=== PATIENT | male | born 1955 | race Caucasian/White ===

== ENCOUNTER → 2023-07-23 13:41 | Outpatient (REF) | payer MEDICARE, BC, SELFPAY | LOC: HWRAD 13:41 | PROVIDERS: ATTENDING PHYSICIAN Nurse Practitioner Adult Health; FAMILY PHYSICIAN Family Medicine | DX: R10.30 Lower abdominal pain, unspecified (principal) | CPT/HCPCS: 76870; 93976 ==

== ENCOUNTER → 2023-12-26 11:17 | Outpatient (REF) | payer MEDICARE, BC, SELFPAY | LOC: HWRCS 11:17 | PROVIDERS: ATTENDING PHYSICIAN Internal Medicine; FAMILY PHYSICIAN Family Medicine | DX: R06.02 Shortness of breath (principal) | CPT/HCPCS: 93306 ==

== ENCOUNTER 2024-01-22 14:44 | Outpatient (RCR) | payer MEDICARE, BC, SELFPAY ==
[2024-01-22] MEDS: INJECTAFER 265 MG IV (15:05)
[2024-01-22 15:07] VITALS: BP 158/86
[2024-01-22 15:51] VITALS: BP 167/98
[2024-01-22 15:59] VITALS: BP 168/95
== END 2024-02-04 23:59 | disposition home or self-care (01) ==
LOC: OID 14:44
PROVIDERS: ATTENDING PHYSICIAN Specialist; FAMILY PHYSICIAN Family Medicine
DX: D50.9 Iron deficiency anemia, unspecified (principal); D63.1 Anemia in chronic kidney disease; N18.32 Chronic kidney disease, stage 3b; I80.9 Phlebitis and thrombophlebitis of unspecified site; D69.2 Other nonthrombocytopenic purpura; R80.9 Proteinuria, unspecified
CPT/HCPCS: 96365; J1439

== ENCOUNTER → 2024-02-18 06:35 | Day surgery (SDC) | payer MEDICARE, BC, SELFPAY | LOC: GI 06:35 | PROVIDERS: ATTENDING PHYSICIAN Student in an Organized Health Care Education/Training Program | DX: Z12.11 Encounter for screening for malignant neoplasm of colon (principal); Z86.0101 Personal history of adenomatous and serrated colon polyps; D50.9 Iron deficiency anemia, unspecified; K64.4 Residual hemorrhoidal skin tags; K57.30 Diverticulosis of large intestine without perforation or abscess without bleeding; D12.0 Benign neoplasm of cecum; D12.2 Benign neoplasm of ascending colon; D12.3 Benign neoplasm of transverse colon; K64.9 Unspecified hemorrhoids; K31.7 Polyp of stomach and duodenum; K31.89 Other diseases of stomach and duodenum | CPT/HCPCS: 43251; 45385; 88305; 88342 ==

== ENCOUNTER → 2024-03-26 11:27 | Outpatient (REF) | payer MEDICARE, BC, SELFPAY ==
[2024-03-26 11:45] LABS: % Basophils 0.1 % (0-2); % Immature Granulocytes 2.6 % (0-0.5); % Lymphocytes 2.1 % (20.5-51.1); % Neutrophils 89.2 % (42.2-75.2); Absolute Immature Granulocytes 0.4 10^3/uL (0-0.05); Absolute Lymphocytes 0.3 10^3/uL (1.2-3.4); Absolute Monocytes 0.9 10^3/uL (0.1-0.6); Absolute Neutrophils 12.8 10^3/uL (1.4-6.5); Hematocrit 26.7 % (39.0-52.0); Mean Corp Hgb Conc. 33.7 g/dL (33.0-37.0); Mean Corpuscular Hgb 29.6 pg (27.0-31.0); Mean Corpuscular Volume 87.8 fL (80.0-94.0); Mean Platelet Volume 10.8 fL (7.4-10.4); Platelet Count 230 10^3/uL (130-400); Red Blood Cell Count 3.04 10^6/uL (4.70-6.10); Red Cell Dist. Width 16.7 % (11.5-14.5); White Blood Cell Count 14.4 10^3/uL (4.8-10.8)
[2024-03-26 14:10] LABS: Iron 142 ug/dl (49-181)
[2024-03-26 14:18] LABS: Blood Urea Nitrogen 157 mg/dl (9-20); Percent Saturation 58 % (20-50); Total Iron Binding Capacity 244 ug/dl (261-462)
== END ==
LOC: OIDL 11:27
PROVIDERS: ATTENDING PHYSICIAN Internal Medicine Hematology & Oncology; FAMILY PHYSICIAN Internal Medicine
DX: D63.1 Anemia in chronic kidney disease (principal); N18.4 Chronic kidney disease, stage 4 (severe); E56.9 Vitamin deficiency, unspecified; R53.83 Other fatigue; D50.8 Other iron deficiency anemias
CPT/HCPCS: 36415; 82565; 82728; 83540; 83550; 84520; 85025

== ENCOUNTER 2024-03-27 23:59 | Inpatient (IN) | payer MEDICARE, BC, SELFPAY ==
[2024-03-27 21:11] VITALS: BP 172/101
--- NOTE | 2024-03-27 21:43 | ED.GENMED ---
History of Present Illness
General
Chief Complaint: Abdominal Symptoms
Source: patient
Exam Limitations: none
Time Seen by Provider: 03/27/24 21:30
Nursing documentation reviewed up to this point in time: agreed with
History of Present Illness
History of Present Illness:
Patient to ED with complaint of diffuse abdominal pain, abdominal bloating, increased BLE edema, 25lb weight gain in 2 weeks. Timbo developed chills. Brought to ED by daughter for eval
Past History
Past History
ED Past Medical History: Arrthythmia, HTN, Hypercholesterolemia and Other (BPH )
ED Past Surgical History: Appendectomy, Orthopedic (Partial right knee replacement) and Other (Hernia repair)
Social History
Tobacco: Non-smoker
Alcohol: Occasional
Drug: None
Personal:
Living: with family
Employment: Employed
Review of Systems
Review of Systems
Allergies reviewed?: Yes
All Other Systems: ROS reviewed and negative except as documented in HPI and ROS
Constitutional: Reports chills
EENT: Reports no symptoms
Respiratory: Reports no symptoms
ABD/GI: Reports abdominal pain
: Reports no symptoms
Musculoskeletal: Reports edema (+3 edema BLE)
Skin: Reports no symptoms
Neurological: Reports no symptoms
Psychiatric: Reports no symptoms
Phy Exam
General Physical Exam
General Presentation: mild distress
General age: appears stated age
General Skin: warm and dry
General Habitus: normal
General Mental: alert
Cardiovascular Exam
Cardiovascular Exam: regular rate/rhythm
Pulmonary Exam
Pulmonary Exam: lungs clear and no respiratory distress
Gastrointestinal Exam
Gastrointestinal Exam: normal bowel sounds, soft and no organomegaly
Palpation: generalized: Mild tenderness
Musculoskeletal Exam
Musculoskeletal Exam: full ROM and neuro vasc intact
Skin Exam
Skin Exam: normal color, warm/dry and no rash
Psychiatric Exam
Psychiatric Exam: normal mood/affect
Course
Orders/Labs/Results
Orders:
Orders
03/27/24 21:42
Abdomen/Pelvis wo Contrast CT [CT Abd/pelvis Wo Iv Cont] Urgent
Comment:
Reason For Exam: diffuse pain
03/27/24 22:19
BNP [NT-proBNP] Urgent
03/27/24 22:20
CMP [Comprehensive Metabolic Panel] Urgent
Complete Blood Count/With Diff Urgent
Magnesium Urgent
Comment: ADDED
Phosphorus Urgent
Comment: ADDED
Urinalysis Reflex To Culture Urgent
Date Specimen was Collected: 03/27/24
Time Specimen was Collected: 21:45
Urine Microscopic Reflex Cult Urgent
Urine Culture Urgent
ANKIT Source: U
Specimen Description:
Date Specimen was Collected: 03/27/24
Time Specimen was Collected: 21:45
03/27/24 22:55
Cefepime HCl [Maxipime] 2,000 mg IV NOW STA
03/27/24 22:58
Sodium Zirconium Cyclosilicate [Lokelma] 10 gram PO NOW STA
03/27/24 23:00
Flush (0.9% Sodium Chloride) [Flush (Nss)] See Dose Instructions IV PER PROTOCOL
03/27/24 23:06
Calcium Gluconate 2 gram/100mL [Calcium Gluconate] 2 gram in 100 ml IV ONCE
03/27/24 23:07
EKG [Electrocardiogram (*1)] Urgent
Reason for Study: Palpitations
Sterile Water [Sterile Water For Injection] 20 ml .ROUTE .STK-MED
03/27/24 23:13
Dextrose 50%-Water [Dextrose 50% Syringe] 12.5 grams IV [id number] PRN
Dextrose 50%-Water [Dextrose 50% Syringe] 25 grams IV NOW STA
Insulin Human Regular [Novolin R] 5 units IV NOW STA
Sodium Bicarbonate 50 meq IV NOW STA
Bedside Glucose PRE IV Insulin- HyperK+ NOW
03/27/24 23:[address] Non Medication Order As Directed
Physician Order: please contact overnight provider with 2AM potassium results
Above order entered?: Yes
03/27/24 23:34
Add On- LAB Routine
Tests Added?: magnesium, phosphorous
03/27/24 23:45
Admit/Transfer Patient As Directed
Co-Sign Provider:
Level of Care: Inpatient admission
Assign to:: IMU- Intermediate Care
Physician / Group: Delma Lopez
Diagnosis: acute renal failure, hyperkalemia
Reason for Hospitalization: acute renal failure, hyperkalemia
Expected length of stay greater than two midnights?: Yes
ELOS- Estimated Length of Stay in days: 5
I certify the patient meets the requirements for IP care: Yes
PRN Pain Medication Management As Directed
May give lesser potent ordered pain med per pt: Yes
preference::
Protocol:: Medication orders for pain may be administered in a
manner that supports deferring to patient preference
when the pt is:
- Requesting an ordered lesser potent pain medication.
Least to most potent pain medications are defined
as: acetaminophen < NSAID < tramadol < opioids
(morphine, oxycodone, hydromorphone).
- Requesting a lesser dose of the same medication IF
ORDERED.
- Requesting a less intrusive route of administration
if both routes are prescribed by the provider (PO <
IV).
03/27/24 23:49
Code Status As Directed
Resuscitation Status: Full Code
03/27/24 23:55
Insulin Human Regular [Novolin R] 10 units IV NOW STA
03/28/24 00:43
Bedside Glucose POST IV Insulin- HyperK+ Q1HX2,Q2HX2
03/28/24 01:50
Acetaminophen [Tylenol] 650 mg PO Q4HPRN PRN
Bisacodyl [Dulcolax] 10 mg RECTAL [id number] PRN
Docusate W/Senna [Senokot-S] 1 tablet PO BIDPRN PRN
Polyethylene Glycol Powder [Miralax] 17 grams PO DAILYPRN PRN
03/28/24 01:50
NEPHROLOGY CONSULT Routine
Consulting Provider: Doug Price
Was physician already notified: Yes
Activity As Directed
Activity Level: As Tolerated
Intake/ Output As Directed
Frequency: Per unit guidelines
Pneumatic Compression Sleeves As Directed
Type: Knee high
Vital Signs As Directed
Frequency: Per unit guidelines
Weight As Directed
Frequency: Daily
DX Deep Vein Thrombosis Video Routine
03/28/24 02:24
Potassium Urgent
Comment: draw 2 hours after regular insulin IV administration
Troponin I Routine
03/28/24 05:47
Basic Metabolic Panel IN AM
Complete Blood Count/No Diff IN AM
Magnesium IN AM
Troponin I IN AM
03/28/24 Breakfast
NPO
Allow oral meds: Yes
Allow clear liquids: No
Sodium Zirconium Cyclosilicate [Lokelma] 10 gram PO TID@0600,1400,1800
03/28/24 08:00
Diltiazem Extended Release [Cardizem Cd] 180 mg PO DAILY
Labetalol [Trandate] 400 mg PO BID
Pantoprazole [Protonix] 40 mg PO DAILY
Prednisone [Deltasone] 30 mg PO DAILY
03/28/24 22:00
Finasteride [Proscar] 5 mg PO HS
Abnormal Lab Results
03/27/24
22:20
WBC 13.1 H 10^3/uL
(4.8-10.8)
RBC 3.08 L 10^6/uL
(4.70-6.10)
Hgb 9.0 L g/dL
(13.0-18.0)
Hct 27.7 L %
(39.0-52.0)
MCHC 32.5 L g/dL
(33.0-37.0)
RDW 17.4 H %
(11.5-14.5)
MPV 11.1 H fL
(7.4-10.4)
Abs Immat Gran (auto) 0.7 H 10^3/uL
(0-0.05)
Absolute Neuts (auto) 11.5 H 10^3/uL
(1.4-6.5)
Absolute Lymphs (auto) 0.2 L 10^3/uL
(1.2-3.4)
Immature Gran % 5.5 H %
(0-0.5)
Neutrophils % 88.1 H %
(42.2-75.2)
Lymphocytes % 1.8 L %
(20.5-51.1)
Potassium 6.5 H* mmol/L
(3.5-5.1)
Chloride 108 H mmol/L
(98-107)
Carbon Dioxide 19 L mmol/L
(22-30)
BUN 161 H* mg/dl
(9-20)
Creatinine 6.4 H* mg/dL
(0.7-1.3)
Glucose 119 H mg/dl
(70-99)
Calcium 8.3 L mg/dl
(8.4-10.2)
Phosphorus 5.5 H mg/dl
(2.5-4.5)
Magnesium 2.8 H mg/dl
(1.6-2.3)
ALT 55 H U/L
(0-50)
Alkaline Phosphatase 30 L U/L
(38-126)
Total Protein 5.0 L g/dl
(6.3-8.2)
Albumin 2.7 L g/dl
(3.5-5.0)
Ur Occult Blood Reflex 3+ A
(Negative)
Leukocyte Esterase Rfl 2+ A
(Negative)
Urine RBC 11-15 A /HPF
(0-2)
Urine WBC (Reflex) 21-25 A /HPF
(0-5)
Urine Bacteria (Reflex) Moderate A
(Negative)
Urine Glucose 2+ A
(Negative)
Urine Albumin (Reflex) 3+ A
(Neg - Trace)
03/27/24 22:20
03/27/24 22:20
Vital Signs
Initial and Last Documented VS:
Initial Vital Signs
Temp Pulse Resp BP Pulse Ox
97.6 F 81 17 172/101 98
03/27/24 21:11 03/27/24 21:11 03/27/24 21:11 03/27/24 21:11 03/27/24 21:11
Last Documented Vital Signs
Temp Pulse Resp BP Pulse Ox
98.3 F 89 18 159/88 95
03/29/24 19:00 03/29/24 20:06 03/29/24 19:00 03/29/24 20:06 03/29/24 19:00
*Radiology
Radiology exam reviewed: radiology read reviewed
*Pulse Oximetry
Patient hypoxic: no
*Critical Care Note
Total Time (30-74mins, 75-104mins- exclusive of procedures): Not Applicable
ED Attending Note
-
Portions of this chart may have been created with voice recognition software.� Occasional wrong word or��sound alike� substitutions may have occurred due to the inherent limitations of voice recognition software.
Discharge Plan
Departure
Patient Disposition: Admit
Date of Disposition: 03/27/24
Time of Disposition: 22:58
Presentation/result/management discussed w/ accepting MD/DO: Hospitalist
Patient with high blood pressure during this ER visit?: Yes
Condition: Fair
Covid-19: Not Applicable
Discharge Problem:
Acute renal failure (ARF), Acute UTI, Acute hyperkalemia
Interventions
Interventions:
*Risk Screen - Suicide Last Done: 03/27/24 21:11
*General Assessment Last Done: 03/27/24 22:27
*Neglect/Abuse Screening Last Done: 03/27/24 21:11
ED- Fall Risk Assessment Last Done: 03/28/24 00:35
*ED COVID-19 Vaccine History Last Done: 03/27/24 22:27
*Nursing Disposition Last Done: 03/28/24 01:57
IQ-Dxveru-Cpwaldlmzg Assessment Last Done: 03/27/24 22:27
Discharge Date and Time
Discharge Date/Time: 03/28/24 01:58
[2024-03-27 22:26] VITALS: BP 170/94
[2024-03-27 22:27] VITALS: BP 170/94; BMI 37.4
[2024-03-27 22:34] LABS: Hematocrit 27.7 % (39.0-52.0); Mean Corp Hgb Conc. 32.5 g/dL (33.0-37.0); Mean Corpuscular Hgb 29.2 pg (27.0-31.0); Mean Corpuscular Volume 89.9 fL (80.0-94.0); Mean Platelet Volume 11.1 fL (7.4-10.4); Platelet Count 203 10^3/uL (130-400); Red Blood Cell Count 3.08 10^6/uL (4.70-6.10); Red Cell Dist. Width 17.4 % (11.5-14.5); White Blood Cell Count 13.1 10^3/uL (4.8-10.8)
[2024-03-27 22:39] LABS: Urine Albumin 3+ (Neg - Trace); Urine Bilirubin Negative (Negative); Urine Character Clear (Clear); Urine Color Yellow; Urine Glucose 2+ (Negative); Urine Ketone Negative (Negative); Urine Leukocyte 2+ (Negative); Urine Nitrite Negative (Negative); Urine Occult Blood 3+ (Negative); Urine Urobilinogen Negative (Neg - 1+)
[2024-03-27 22:46] LABS: % Basophils 0.1 % (0-2); % Immature Granulocytes 5.5 % (0-0.5); % Lymphocytes 1.8 % (20.5-51.1); % Monocytes 4.5 % (1.7-9.3); % Neutrophils 88.1 % (42.2-75.2); Absolute Immature Granulocytes 0.7 10^3/uL (0-0.05); Absolute Lymphocytes 0.2 10^3/uL (1.2-3.4); Absolute Monocytes 0.6 10^3/uL (0.1-0.6); Absolute Neutrophils 11.5 10^3/uL (1.4-6.5); Nucleated Red Blood Cells % 0 % (-)
[2024-03-27 22:47] LABS: ALT (SGPT) 55 U/L (0-50); AST (SGOT) 47 U/L (17-59); Albumin 2.7 g/dl (3.5-5.0); Alkaline Phosphatase 30 U/L (38-126); Calcium 8.3 mg/dl (8.4-10.2); Carbon Dioxide 19 mmol/L (22-30); Chloride 108 mmol/L (98-107); Estimated Creatinine Clearance 12 ml/min; Glucose 119 mg/dl (70-99); Potassium 6.5 mmol/L (3.5-5.1); Sodium 136 mmol/L (135-145); Total Bilirubin 0.5 mg/dl (0.2-1.3); eGFR 8.73
[2024-03-27 22:49] LABS: NT-proBNP 2850 pg/ml
[2024-03-27 22:49] LABS: Urine Bacteria Moderate (Negative); Urine White Cell 21-25 /HPF (0-5)
[2024-03-27 22:53] LABS: Blood Urea Nitrogen 161 mg/dl (9-20)
[2024-03-27 23:00] VITALS: BP 167/102
--- NOTE | 2024-03-27 23:01 | HPS.HSE ---
Addendum entered and electronically signed by Delma Lopez MD 03/28/24 00:16:
*also continue CONTACT REPRESENTATIVE Labetalol for HTN
Original Note:
Family Physician
-
Family Physician: Christoph Castellon
Chief Complaint
-
abdominal pain and bloating
History of Present Illness
Mr. Kulwant Charles is a 68 yo man with hx HTN, HLD, BPH, atrial fibrillation, CKD and ANCA Vasculitis presents to the ER with abdominal pain/bloating and a 25lb weight gain over the past two weeks.
Patient states that his GFR had been climbing over past couple of months and he has been working with his Batter Scaler and Rheumatology. He was started on steroids, prednisone 40mg now on 30mg. He was also started on a new medication, Tavneos.
Over the past couple of weeks he has noticed significant swelling of his legs, it is painful to walk. He also has abdominal bloating and shortness of breath with minimal exertion. He has gained 25 lbs. He takes lasix 20mg daily. No current chest
pain, but states intermittently occurred when walking.
Today when at dinner with grandson he felt chills which brought him in. No measured fevers. No cough/congestion. No nausea/vomiting. No diarrhea. He is still urinating, denies significant changes to urination.
Medical History
Past Medical History
Past Medical History: Reports Other (HTN, HLD, BPH, atrial fibrillation)
Past Surgical History: Reports Appendectomy, Orthopedic and Other (hernia repair )
Social History
Tobacco: Non-smoker
Alcohol: Occasional
Family History
Family History: Not pertinent
Allergies / Home Medications
Allergies reflects when Allergies were last updated in [facility].
Home Medications with original date entered in [facility]
Allergy/Medication List:
Allergies
Allergy/AdvReac Type Severity Reaction Status Date / Time
No Known Allergies Allergy Verified 01/22/24 15:06
Home Medications
fenofibrate nanocrystallized 145 mg tablet 145 mg PO DAILY High cholesterol 01/21/19
finasteride 5 mg tablet 5 mg PO HS Urinary issue 01/21/19
ascorbic acid (vitamin C) 500 mg tablet (Vitamin C) 500 mg PO DAILY Supplement 05/13/19
vitamin E (dl, acetate) 180 mg (400 unit) capsule 400 units PO DAILY Supplement 05/28/19
acetaminophen 500 mg tablet (Tylenol Extra Strength) 1,000 mg (2 x 500 mg) PO Q8HPRN PRN mild pain ##0 05/29/19
apixaban 5 mg tablet (Eliquis) 5 mg PO BID #60 tabs 10/12/21
losartan 100 mg tablet 100 mg PO DAILY Blood pressure 11/17/21
potassium chloride 10 mEq tablet,extended release 10 meq PO DAILY Electrolyte Repletion 11/17/21
tadalafil 20 mg tablet (Cialis) 20 mg PO DAILYPRN PRN ed 11/17/21
Lactobacillus 40-Bifidobact 3-S.thermophilus 100 billion cell capsule (Probiotic) 1 cap PO HS 02/23/23
calcium carbonate 1,200 mg PO HS 02/23/23
cholecalciferol (vitamin D3) 50 mcg (2,000 unit) capsule (Vitamin D3) 50 mcg PO DAILY 02/23/23
labetalol 200 mg tablet 400 mg PO BID 02/23/23
magnesium 200 mg tablet 400 mg PO HS 02/23/23
hpnnygyc-og-tttuz 300 mcg-K 60 mcg-lycop 600 mcg-lutein 300 mcg tablet (Centrum Silver Men) 1 tab PO DAILY 02/23/23
diltiazem HCl 180 mg capsule,extended release 24 hr, controlled 180 mg PO DAILY 01/22/24
furosemide 20 mg tablet 20 mg PO DAILY 01/22/24
sulfamethoxazole 800 mg-trimethoprim 160 mg tablet 1 tab PO MOWEFR 01/22/24
pantoprazole 40 mg tablet,delayed release 40 mg PO DAILY 03/27/24
prednisone 20 mg tablet 30 mg PO DAILY 03/27/24
rituximab 10 mg/mL concentrate,intravenous (Rituxan) 0 mg IV [id number] 03/27/24
semaglutide 2 mg/dose (8 mg/3 mL) subcutaneous pen injector (Ozempic) 2 mg SC TH 03/27/24
Review of Systems
-
History Source: Patient
A 12 point ROS was completed and negative except as noted: Yes
Physical Exam
Vital Signs
Vital Signs
Temp Pulse Resp BP Pulse Ox
97.6 F 83 12 170/94 100
03/27/24 21:11 03/27/24 22:30 03/27/24 22:30 03/27/24 22:27 03/27/24 22:30
Physical Exam
General: Other (conversant but tachypneic )
HEENT: PERRLA
Respiratory: Rales
Cardiac: S1/S2 and Regular Rhythm
GI: Other (swollen, non-tender)
Musculoskeletal: Edema, Left Lower Extremity and Edema, Right Lower Extremity
Skin: Warm and Dry; No Rash
Neuro: AO x 3
Psych: Anxious
Laboratory Results
-
03/27/24 22:20
03/27/24 22:20
Laboratory Results
Total Bilirubin 0.5 mg/dl (0.2-1.3) 03/27/24 22:20
AST 47 U/L (17-59) 03/27/24 22:20
ALT 55 U/L (0-50) H 03/27/24 22:20
Alkaline Phosphatase 30 U/L (38-126) L 03/27/24 22:20
Data Reviewed
-
Diagnostic Radiology: Report Reviewed by me
Lab Data: Labs Reviewed by me
Impression/Plan
-
Mr. Kulwant Charles is a 68 yo man with hx HTN, HLD, BPH, atrial fibrillation presents to the ER with abdominal pain/bloating and a 25lb weight gain over the past two weeks.
Triage VS: T 97.6, P 81, RR 17, BP 172/101, SpO2 98%
LABS: WBC 13.1, Hg 9.0, PLT 203, Na 136, K+ 6.5, Cl 108, CO2 19, BUN 161, Cr 6.4, Glucose 119
UA with 21-25 WBC, + RBC
CT A/P
IMPRESSION:
No CT evidence for an acute inflammatory process in the abdomen or pelvis within the limitations of the lack of intravenous and oral contrast. Chronic findings, as detailed above.
The unenhanced liver, gallbladder, bile ducts, pancreas, bilateral adrenal glands, and kidneys are unremarkable other than a few small bilateral renal cysts. No hydronephrosis or nephrolithiasis.
Acute Renal Failure
Hyperkalemia
ANCA Vasculitis
-progressive renal failure over past couple of months; CT without [place]
-case discussed with Dr. Price who has come in to see patient
-admit to IMU
-treat hyperK: IV insulin/D50, sodium bicarb, continue Lokelma
-monitor K closely
-plan for catheter placement and HD initiation tomorrow per renal
-hold Eliquis for likely need for tunnelled cath
ANCA Vasculitis
-patient is on Rituximab as outpatient and has been recently started on Tavneos
-continue steroid course - Prednisone 30mg PO QD
-hold CONTACT REPRESENTATIVE Bactrim (PPx)
UA Inflammation
-doubt UTI, suspect symptoms completely explained by above
-hold off on further antibiotics, follow up culture
Atrial Fibrillation
s/p successful ablation
-hold CONTACT REPRESENTATIVE Eliquis in case need for tunneled cath placement
GERD
-CONTACT REPRESENTATIVE Protonix
Essential HTN
-hold CONTACT REPRESENTATIVE Losartan
-CONTACT REPRESENTATIVE Diltiazem
DVT PPx SCD
FULL CODE
Total Critical Care Time 65 minutes. I was immediately available to the patient and staff. I personally examined, reviewed labs, diagnostic images/reports, interpretations, treatment plans, discussed patient care with other providers and family
or caregivers (if patient is unable to make decisions), entered orders as appropriate and documented the medical record.
[2024-03-27] MEDS: MAXIPIME 2000 MG IV (23:14)
[2024-03-27] MEDS: LOKELMA 10 GRAM PO (23:34)
[2024-03-27] MEDS: CALCIUM GLUCONATE 100 IV (23:42)
[2024-03-28] VITALS (35 sets, daily range): BP systolic 99–192; BP diastolic 88–118; PULSE 96–98; BMI 36.8
--- NOTE | 2024-03-28 | W.CON.NEPH ---
Consultation
-
Date/Time Consultation Requested: 03/27/242299
Date/Time Consultation Performed: 03/27/242299
Requesting Provider: Dr Lopez
Performing Provider: Dr Price
Reason for Consultation: MOISES
Medical History
-
Chief Complaint: Edema, weakness
History of Present Illness:
This is a 68-year-old gentleman who I had met back in 2019. He was initially evaluated for for elevated creatinine values. At that time his creatinine was 1.7. He also presented with a blanching petechial purpuric rash on the palmar aspect of his
hands. 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 He underwent renal
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 He underwent Rituxan therapy with steroids. Over time however, his creatinine continue to
slowly rise. He received further doses of Rituxan. In the last year his creatinine had risen as high as 4.0 and the use of Tavneos was entertained. He he said that he was not able to obtain it until the new year given his insurance issues.
However, given clear progression of his renal disease he was given pulse dose steroids last weekend. 2 days ago he started Tavneos and also received iron injection. However he then began developing significant in the edema with weight gain. This
became rather severe and he came to the emergency room for evaluation. He was noted to have a creatinine of 6.4 with BUN 161, K 6.5. He is critically ill.
Past Medical History
Pauci-immune focal crescentic glomerulonephritis, Leukocytoclastic skin vasculitis, hypertension, BPH, nephrolithiasis, hyperlipidemia, sleep apnea, appendectomy, left laser lithotripsy with ureteral stent, right knee replacement, umbilical hernia
repair
Social History
Tobacco: Non-Smoker
Alcohol: None
Family History
Family History: Not Pertinent
Allergies / Home Medications
Allergy/AdvReac Type Severity Reaction Status Date / Time
No Known Allergies Allergy Verified 01/22/24 15:06
�Medication �Instructions �Recorded �Confirmed �Type
fenofibrate nanocrystallized 145 145 mg PO DAILY High cholesterol 01/21/19 03/27/24 History
mg tablet
finasteride 5 mg tablet 5 mg PO HS Urinary issue 01/21/19 03/27/24 History
ascorbic acid (vitamin C) 500 mg 500 mg PO DAILY Supplement 05/13/19 03/27/24 History
tablet (Vitamin C)
vitamin E (dl, acetate) 180 mg 400 units PO DAILY Supplement 05/28/19 03/27/24 History
(400 unit) capsule
acetaminophen 500 mg tablet 1,000 mg (2 x 500 mg) PO Q8HPRN 05/29/19 03/27/24 Rx
(Tylenol Extra Strength) PRN mild pain ##0
apixaban 5 mg tablet (Eliquis) 5 mg PO BID #60 tabs 10/12/21 03/27/24 Rx
losartan 100 mg tablet 100 mg PO DAILY Blood pressure 11/17/21 03/27/24 History
potassium chloride 10 mEq 10 meq PO DAILY Electrolyte 11/17/21 03/27/24 History
tablet,extended release Repletion
tadalafil 20 mg tablet (Cialis) 20 mg PO DAILYPRN PRN ed 11/17/21 03/27/24 History
Lactobacillus 40-Bifidobact 1 cap PO HS 02/23/23 03/27/24 History
3-S.thermophilus 100 billion cell
capsule (Probiotic)
calcium carbonate 1,200 mg PO HS 02/23/23 03/27/24 History
cholecalciferol (vitamin D3) 50 50 mcg PO DAILY 02/23/23 03/27/24 History
mcg (2,000 unit) capsule (Vitamin
D3)
labetalol 200 mg tablet 400 mg PO BID 02/23/23 03/27/24 History
magnesium 200 mg tablet 400 mg PO HS 02/23/23 03/27/24 History
tfgrztgk-ho-bxsac 300 mcg-K 60 1 tab PO DAILY 02/23/23 03/27/24 History
mcg-lycop 600 mcg-lutein 300 mcg
tablet (Centrum Silver Men)
diltiazem HCl 180 mg 180 mg PO DAILY 01/22/24 03/27/24 History
capsule,extended release 24 hr,
controlled
furosemide 20 mg tablet 20 mg PO DAILY 01/22/24 03/27/24 History
sulfamethoxazole 800 1 tab PO MOWEFR 01/22/24 03/27/24 History
mg-trimethoprim 160 mg tablet
pantoprazole 40 mg tablet,delayed 40 mg PO DAILY 03/27/24 03/27/24 History
release
prednisone 20 mg tablet 30 mg PO DAILY 03/27/24 03/27/24 History
rituximab 10 mg/mL 0 mg IV [id number] 03/27/24 03/27/24 History
concentrate,intravenous (Rituxan)
semaglutide 2 mg/dose (8 mg/3 mL) 2 mg SC TH 03/27/24 03/27/24 History
subcutaneous pen injector (Ozempic)
Review of Systems
-
Fatigue, weight gain, edema
All other systems: Negative unless noted
Physical Exam
Vital Signs
Vital Signs
Temp Pulse Resp BP Pulse Ox
97.6 F 83 12 170/94 100
03/27/24 21:11 03/27/24 22:30 03/27/24 22:30 03/27/24 22:27 03/27/24 22:30
Lab Results
WBC 13.1 10^3/uL (4.8-10.8) H 03/27/24 22:20
RBC 3.08 10^6/uL (4.70-6.10) L 03/27/24 22:20
Hgb 9.0 g/dL (13.0-18.0) L 03/27/24 22:20
Hct 27.7 % (39.0-52.0) L 03/27/24 22:20
Plt Count 203 10^3/uL (130-400) 03/27/24 22:20
Sodium 136 mmol/L (135-145) 03/27/24 22:20
Potassium 6.5 mmol/L (3.5-5.1) H* 03/27/24 22:20
Chloride 108 mmol/L (98-107) H 03/27/24 22:20
Carbon Dioxide 19 mmol/L (22-30) L 03/27/24 22:20
BUN 161 mg/dl (9-20) H* 03/27/24 22:20
Creatinine 6.4 mg/dL (0.7-1.3) H* 03/27/24 22:20
eGFR 8.73 03/27/24 22:20
Glucose 119 mg/dl (70-99) H 03/27/24 22:20
Calcium 8.3 mg/dl (8.4-10.2) L 03/27/24 22:20
Kni-H-Bctgkqdksjf Pept 2850 pg/ml 03/27/24 22:19
Albumin 2.7 g/dl (3.5-5.0) L 03/27/24 22:20
On March 14, 2024 creatinine 3.69, potassium 4.4, BUN 57, contact hide 19
Physical Exam
Patient is awake alert oriented and in no distress. Mood and affect were pleasant, insight and judgment were good. Pupils are equal round and reactive to light, extraocular movements are intact, sclera were anicteric. Hearing was normal, ears and
nose are intact. Oropharynx was clear. Neck was supple with trachea midline and no thyromegaly. Heart was regular rate and rhythm without rubs. Lower extremities with 3+ edema. Lungs were clear to auscultation bilaterally and with normal
excursion. Abdomen was soft, nontender, with normal active bowel sounds, and no hepatosplenomegaly. Skin was with Purpuric blanching rash to the palms and with normal turgor.
Data Reviewed
-
CT Scan: Report Reviewed by me ( CT on March 27, 2024 shows no acute inflammatory process)
Medical Tests (Nuc Med, Echo etc): Image Personally Visualized and interpreted (EKG on 03/27/2024 by my reading shows normal sinus rhythm)
Labs: Labs Reviewed by me
Old Records: Reviewed
Assessment/Plan
-
Assessment
MOISES
Azotemia
hyperkalemia
aemia
metabolic acidosis
pauci immune focal crescentic glomerulosclerosis
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
edema
Plan
I discussed with the patient at great length. He requires initiation of dialysis at this time. We will have a dialysis catheter placed in the morning for initiation tomorrow. Potassium will be treated medically at this time.
check antiGBM
follow BMP
on eliquis, temp HD CVC.
steroid wean
no lasix tonight
critical care time 50 minutes
[2024-03-28] MEDS: DEXTROSE 50% SYRINGE 25 GRAMS IV ×3 (00:01→03:29)
[2024-03-28] MEDS: SODIUM BICARBONATE 50 MEQ IV ×2 (00:01→03:35)
[2024-03-28] MEDS: NOVOLIN R 10 UNITS IV (00:02)
[2024-03-28 00:08] LABS: Glucose - Point of Care 106 mg/dl (70-99)
[2024-03-28 00:35] LABS: Magnesium 2.8 mg/dl (1.6-2.3)
[2024-03-28 00:48] LABS: Phosphorus 5.5 mg/dl (2.5-4.5)
[2024-03-28 01:27] LABS: Glucose - Point of Care 57 mg/dl (70-99)
[2024-03-28 02:10] LABS: Glucose - Point of Care 118 mg/dl (70-99)
[2024-03-28] MEDS: MYLICON 80 MG PO (02:17)
[2024-03-28 03:01] LABS: Potassium 6.1 mmol/L (3.5-5.1)
--- NOTE | 2024-03-28 03:06 | PTCARENOTE ---
Critical k 6.1- vehicle calibration engineer provider made aware and placing hyperkalemia tx orders.
[2024-03-28 03:14] LABS: Troponin I 0.025 ng/ml
--- NOTE | 2024-03-28 03:15 | W.PN.UPDATE ---
Update Note
Progress Note Update
Repeated K+ 6.1. Insulin, dextrose, and sodium bicarbonate ordered per hyperkalemia protocol.
[2024-03-28] MEDS: NOVOLIN R 0.1 UNITS IV (03:30)
[2024-03-28 03:35] LABS: Glucose - Point of Care 93 mg/dl (70-99)
[2024-03-28 05:12] LABS: Glucose - Point of Care 83 mg/dl (70-99)
[2024-03-28 06:02] LABS: Hematocrit 27.1 % (39.0-52.0); Hemoglobin 9.1 g/dL (13.0-18.0); Mean Corp Hgb Conc. 33.6 g/dL (33.0-37.0); Mean Corpuscular Hgb 29.5 pg (27.0-31.0); Mean Platelet Volume 11.5 fL (7.4-10.4); Platelet Count 201 10^3/uL (130-400); Red Blood Cell Count 3.08 10^6/uL (4.70-6.10); Red Cell Dist. Width 17.1 % (11.5-14.5)
[2024-03-28 06:31] LABS: Glucose - Point of Care 96 mg/dl (70-99)
[2024-03-28] MEDS: LOKELMA 10 GRAM PO ×3 (06:31→18:30)
[2024-03-28 06:35] LABS: Calcium 8.4 mg/dl (8.4-10.2); Carbon Dioxide 18 mmol/L (22-30); Chloride 108 mmol/L (98-107); Estimated Creatinine Clearance 12 ml/min; Glucose 81 mg/dl (70-99); Magnesium 2.7 mg/dl (1.6-2.3); Potassium 5.7 mmol/L (3.5-5.1); Sodium 137 mmol/L (135-145); eGFR 8.57
[2024-03-28 06:50] LABS: Blood Urea Nitrogen 156 mg/dl (9-20); Troponin I 0.033 ng/ml
[2024-03-28 07:28] LABS: Glucose - Point of Care 99 mg/dl (70-99)
--- NOTE | 2024-03-28 08:16 | PTCARENOTE ---
Patient received from rail equipment operator. Patient resting comfortably. No events noted over night. No complaints of pain at this time. On BiPAP HS. Currently NPO for IRAD and HD cath placement. HD to happen upon return. Call mcclelland in reach.
[2024-03-28 09:28] LABS: Glucose - Point of Care 90 mg/dl (70-99)
[2024-03-28] MEDS: MANNITOL 25% 12.5 GRAMS IV (09:29)
--- NOTE | 2024-03-28 09:44 | W.PN.NEPH.HD ---
Assessment
-
Patient seen on dialysis
Systolic blood pressure 178 at current U/F
Mannitol to be given cautiously, given high blood pressure but to help prevent disequilibrium
Qd at 400 cc per/minuted
Dialysis again tomorrow and Sunday
Patient will need outpatient dialysis arrangements to be at our unit at [facility]
Progress Note - Hemodialysis
-
Date of Service: March 28, 2024
Duration: 30 minutes and 2 hours
Potassium Bath: 2
Calcium Bath: 2.5
Opti-Dialyzer: 160
Ultrafiltration: Other (1kg)
Blood Flow: 250
Dialysate Flow: Other (400)
Heparin: none
EPO: none
[2024-03-28] MEDS: MANNITOL 25% IV (11:21)
[2024-03-28] MEDS: HEPARIN 2100 UNITS INTRACATH (11:22)
[2024-03-28 12:40] LABS: Hepatitis B Surface Antigen Negative (Negative)
[2024-03-28 12:57] LABS: Hepatitis B Surface Antibody Negative
--- NOTE | 2024-03-28 13:00 | W.PN.HOSP.TC ---
Addendum entered and electronically signed by Marah Garcia MD 03/28/24 14:48:
I saw and evaluated the patient independently. I reviewed the resident�s note and agree with findings and plan as documented by Dr. Taylor.
GENERAL: well developed, well nourished, male in no apparent distress
HEENT: NC/AT--no O2 requirements
HEART: regular rate and rhythm, +S1, +S2
LUNGS : clear to auscultation bilaterally
ABDOM: soft, nontender, nondistended, + bowel sounds
EXT: no cyanosis, clubbing--edema 2-3+ LE edema pitting and painful
NEUROLOGIC: grossly intact
Acute Renal Failure with hyperkalemia progressed to hemodialysis due to worsening ANCA vasculitis---progressive renal failure over past couple of months; CT without [place] so do not believe post obstructive, volume overloaded so prerenal also ruled
out--apprec renal/IR--got temp cath to start HD here--treat hyperkalemia (HD will also help)--Eliquis was on hold--restart
ANCA Vasculitis--patient is on Rituximab as outpatient and has been recently started on Tavneos---continue steroid course - Prednisone 30mg PO QD--no need for stress doses--hold prophylactic Bactrim DS
UA consistent with Inflammation/glomerulonephritis--doubt UTI--follow culture--hold ABX
Paroxysmal Atrial Fibrillation--s/p successful ablation in past--restart Eliquis
GERD-- cont Protonix
Essential HTN--holding lorsartan and diltiazem but BP high--restart diltiazem
DVT PPx SCD
code status -- FULL CODE
Original Note:
Today's Communication/Plan
-
.
Assessment / Plan
Assessment / Plan
Patient is a 68-year-old male with past medical history of hypertension, hyperlipidemia, BPH, atrial fibrillation, ANCA vasculitis presenting to the ER with progressive abdominal pain and 25 pound weight gain over the last 2 weeks.
#Acute renal failure and history of ANCA vasculitis
CT shows no hydro or nephrolithiasis
Progressive renal failure over the last few weeks
Anti-GBM pending
Eliquis held for placement of tunneled cath in future
Temporary catheter placed and hemodialysis started today
Continue to follow BMP
#Hyperkalemia
Continue IV insulin/D50, sodium bicarb, Lokelma
Continue to monitor potassium
#ANCA vasculitis
Continue prednisone 30 mg
Hold Bactrim
History of rituximab and tab NEOS use
#Inflammatory urine analysis
Unlikely UTI because of pre-existing glomerular process which increases excretion of protein, blood and cells
Pending culture
#Atrial fibrillation
Continue to hold Eliquis
#GERD
Continue Protonix
#Essential hypertension
Hold losartan
Continue diltiazem
DVT prophylaxis SCDs
Full code
Anticipated Discharge: > 48 hours
Subjective/Interval History
-
Date of Service: March 28, 2024
Patient is a 68-year-old male with past medical history of hypertension, hyperlipidemia, BPH, atrial fibrillation, ANCA vasculitis presenting to the ER with progressive abdominal pain and 25 pound weight gain over the last 2 weeks. He is a known
patient to Dr. Price and nephrology who has been following him since 2019. Patient was diagnosed then with ANCA vasculitis, started on Rituxan with steroids. His creatinine marissa slowly and the use of Tavneos was considered. Given clear progression
of renal disease, he was given pulse dose of steroids last week and started Tavneos 10 days ago. He began to develop severe edema and weight gain subsequently. In the ED patient was noted to have a creatinine of 6.4, potassium of 6.5 and BUN of
161. CT showed no hydronephrosis or nephrolithiasis. Nephrology recommended placement of dialysis catheter today.
Today in conversation he reports feeling anxious and shaky, which has been ongoing over the last week. He reports no headaches, nausea, vomiting, abdominal pain. He reports intermittent diarrhea and constipation as well as painful edema. He is
unsure if his urine output has changed during this time.
Objective Data
-
Labs:
Laboratory Results
03/28/24 03/28/24
02:24 05:47
WBC 14.0 H
Hgb 9.1 L
Hct 27.1 L
Plt Count 201
Sodium 137
Potassium 6.1 H* 5.7 H
Chloride 108 H
Carbon Dioxide 18 L
BUN 156 H*
Creatinine 6.5 H*
Glucose 81
Calcium 8.4
Vital Signs:
Vital Signs
Temp Pulse Resp BP Pulse Ox
97.6 F 86 21 183/102 96
03/28/24 11:46 03/28/24 08:33 03/28/24 08:33 03/28/24 08:33 03/28/24 11:56
I&O
03/27/24 03/28/24 03/29/24
06:59 06:59 06:59
Output Total 300 / 300 200 / 200
Balance -300 / -300 -200 / -200
Review of Systems
-
History Source: Patient
Constitutional: Reports Weight Gain and Weakness
Respiratory: Reports No Symptoms
Cardiac: Reports No Symptoms
Abdomen/GI: Reports Abdominal Pain
Musculoskeletal: Reports Edema
Neuro: Reports No Symptoms
Physical Exam
-
General: Well Developed, Well Nourished, Appears in Distress (Mild), Chills and Obese
HEENT: Normocephalic and Atraumatic
Respiratory: Clear to Auscultation
Cardiac: Regular Rhythm and S1/S2
GI: Soft, Nontender, Nondistended and Normal Bowel Sounds
Musculoskeletal: Edema, Right Lower Extrem, Edema, Left Lower Extrem and Other (Painful edema)
Skin: Warm and Dry
Neuro: AO x 3
Psych: Calm
Data Reviewed
-
CT Scan: Report Reviewed by me
Labs: Labs Reviewed by me and Discussed with Physician
Old Records: Reviewed
[2024-03-28] MEDS: TRANDATE 400 MG PO ×2 (13:02→21:38)
[2024-03-28] MEDS: CARDIZEM CD 180 MG PO (13:03)
[2024-03-28] MEDS: DELTASONE 30 MG PO (13:05)
[2024-03-28] MEDS: PROTONIX 40 MG PO (13:05)
--- NOTE | 2024-03-28 16:38 | CM ---
Patient with new Dx ARF with new HD beginning today. Nontunneled right IJ hemodialysis catheter placed. Room air. Per nursing; requires assist of 1, A/O.
Met with patient who resides alone in a 2 story house with 4 TONIE and elevator inside.
The patient has been independent in ADLs and ambulation, rarely using the quad cane.
His this year and most of the DME was hers except for CPAP.
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
DME - CPAP, RW, quad cane, w/c
No prior VN or SNF
PCP - Mark Thornton
Pharmacy - [facility]
Met with Dr Woods; patient will need outpatient HD setup at [facility]. He is hoping for d/c 04/02.
Spoke with [facility]; initiated referral for outpatient HD at [facility] beginning 04/02, with schedule request for MWF noon. She faxed Admission Checklist- completed and faxed back with dialysis flowsheets.
Plan home with [facility] Outpt HD once cleared to start.
[2024-03-28] MEDS: PROSCAR 5 MG PO (21:38)
[2024-03-29] VITALS (33 sets, daily range): BP systolic 81–184; BP diastolic 67–110; PULSE 79–97; BMI 35.7
--- NOTE | 2024-03-29 03:05 | PTCARENOTE ---
Report given from edna RUFF. GIBRANR on tele. Respiratory therapy came to bedside to place pt on CPAP HS. HD cath dressing clean, dry, and intact. Slight drainage noted appears to be old drainage. Due for HD in AM. Pt voiding in the urinal. Pt appears
to be resting in bed comfortably. Call mcclelland is within reach.
[2024-03-29] MEDS: TYLENOL 650 MG PO (05:57)
[2024-03-29] MEDS: LOKELMA 10 GRAM PO ×3 (06:30→18:04)
[2024-03-29] MEDS: HEPARIN 500 UNITS IV ×2 (08:29→10:47)
[2024-03-29] MEDS: MANNITOL 25% 12.5 GRAMS IV ×2 (08:30→10:01)
--- NOTE | 2024-03-29 08:30 | PTCARENOTE ---
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 Patient resting comfortably. No events noted over night. No complaints of pain at this time. Off CPAP and on Room Air. HD scheduled for this AM, no other tests scheduled at this time. Call mcclelland in reach.
[2024-03-29 08:42] LABS: Hematocrit 25.8 % (39.0-52.0); Hemoglobin 8.8 g/dL (13.0-18.0)
--- NOTE | 2024-03-29 08:47 | W.PN.HOSP.TC ---
Today's Communication/Plan
-
HD today
possible downgrade to tele
Assessment / Plan
Assessment / Plan
pt is a 68 year old male
Acute Renal Failure with hyperkalemia progressed to hemodialysis due to worsening ANCA vasculitis---progressive renal failure over past couple of months; CT without [place] so do not believe post obstructive, volume overloaded so prerenal also ruled
out--apprec renal/IR--got temp cath to start HD here--treat hyperkalemia (HD will also help)--Eliquis was on hold--cont to hold, will need tunneled HD cath prior to d/c, wants [facility] HD chair, apprec CM
ANCA Vasculitis--patient is on Rituximab as outpatient and has been recently started on Tavneos---continue steroid course - Prednisone 30mg PO QD--no need for stress doses--hold prophylactic Bactrim DS
UA consistent with Inflammation/glomerulonephritis--doubt UTI--follow culture--hold ABX
Paroxysmal Atrial Fibrillation--s/p successful ablation in past--restart Eliquis after tunneled cath
GERD-- cont Protonix
Essential HTN--holding lorsartan---restarted diltiazem and labetalol
DVT PPx SCD
code status -- FULL CODE
Anticipated Discharge: > 48 hours
Subjective/Interval History
-
Date of Service: March 29, 2024
pt without c/o--HD RN says BPs better
Objective Data
-
Labs:
Laboratory Results
03/29/24
08:23
Hgb 8.8 L
Hct 25.8 L
Sodium Pending
Potassium Pending
Chloride Pending
Carbon Dioxide Pending
BUN Pending
Creatinine Pending
Glucose Pending
Calcium Pending
Vital Signs:
max temp for 24 hours
03/28/24
19:10
Temp 98.7 F
Vital Signs
Temp Pulse Resp BP Pulse Ox
97.4 F 88 15 178/99 98
03/29/24 03:20 03/29/24 06:00 03/29/24 06:00 03/29/24 06:00 03/29/24 06:00
I&O
03/28/24 03/29/24 03/30/24
06:59 06:59 06:59
Output Total 300 / 300 1150 / 1150
Balance -300 / -300 -1150 / -1150
Review of Systems
-
All other systems: Reviewed and negative
Physical Exam
-
General: Well Developed, Well Nourished and No Apparent Distress
HEENT: Normocephalic and Atraumatic; Negative Oxygen
Respiratory: Clear to Auscultation; Negative Wheezes, Rales or Rhonchi
Cardiac: Regular Rhythm and S1/S2; Negative Murmur
GI: Soft, Nontender, Nondistended and Normal Bowel Sounds
Musculoskeletal: No Clubbing, No Cyanosis and No Edema
Neuro: Awake, Alert and Nonfocal/Grossly Intact
Psych: Calm
[2024-03-29 08:57] LABS: Blood Urea Nitrogen 110 mg/dl (9-20); Calcium 7.9 mg/dl (8.4-10.2); Carbon Dioxide 25 mmol/L (22-30); Chloride 107 mmol/L (98-107); Estimated Creatinine Clearance 14 ml/min; Glucose 133 mg/dl (70-99); Potassium 4.3 mmol/L (3.5-5.1); Sodium 138 mmol/L (135-145)
--- NOTE | 2024-03-29 10:09 | W.PN.NEPH.HD ---
Assessment
-
pt seen during HD
vitals stable
UF as tolerates
temp CVC functions fine
HD again tomorrow
likely out pt HD unit placement and change to tunneled catheter prior d/c
Progress Note - Hemodialysis
-
Date of Service: March 29, 2024
Duration: 45 minutes and 2 hours
Potassium Bath: 3
Calcium Bath: 2.5
Opti-Dialyzer: 160
Ultrafiltration: Other (2kg)
Blood Flow: 400
Dialysate Flow: 600
Heparin: yesx2
EPO: no
[2024-03-29] MEDS: HEPARIN 2000 UNITS INTRACATH (10:48)
[2024-03-29] MEDS: PROTONIX 40 MG PO (11:34)
[2024-03-29] MEDS: TRANDATE 400 MG PO ×2 (11:34→20:06)
[2024-03-29] MEDS: DELTASONE 30 MG PO (11:36)
[2024-03-29] MEDS: CARDIZEM CD 180 MG PO (11:36)
--- NOTE | 2024-03-29 12:47 | PTCARENOTE ---
rec'd pt from IMU. walked from wheelchair to bed. denies pain. oriented to room
--- NOTE | 2024-03-29 12:56 | PTCARENOTE ---
Report called to Tammy RUFF 4W. Patient transferred with all known belongings via wheel chair. Receiving RN and PCT in room.
[2024-03-29] MEDS: PROSCAR 5 MG PO (20:05)
[2024-03-30] VITALS (7 sets, daily range): BP systolic 145–181; BP diastolic 86–104; BMI 34.7
[2024-03-30 07:15] LABS: Hematocrit 26.2 % (39.0-52.0); Hemoglobin 8.8 g/dL (13.0-18.0); Mean Corp Hgb Conc. 33.6 g/dL (33.0-37.0); Mean Corpuscular Hgb 29.7 pg (27.0-31.0); Mean Corpuscular Volume 88.5 fL (80.0-94.0); Red Blood Cell Count 2.96 10^6/uL (4.70-6.10); Red Cell Dist. Width 16.5 % (11.5-14.5); White Blood Cell Count 12.8 10^3/uL (4.8-10.8)
[2024-03-30 07:37] LABS: Blood Urea Nitrogen 82 mg/dl (9-20); Calcium 7.5 mg/dl (8.4-10.2); Carbon Dioxide 28 mmol/L (22-30); Chloride 103 mmol/L (98-107); Estimated Creatinine Clearance 17 ml/min; Glucose 90 mg/dl (70-99); Magnesium 2.1 mg/dl (1.6-2.3); Potassium 4.2 mmol/L (3.5-5.1); Sodium 138 mmol/L (135-145); eGFR 14.47
[2024-03-30] MEDS: HEPARIN 500 UNITS IV ×2 (07:55→08:55)
[2024-03-30] MEDS: MANNITOL 25% 12.5 GRAMS IV ×2 (08:15→09:40)
[2024-03-30] MEDS: RETACRIT 10000 UNITS IV (08:23)
--- NOTE | 2024-03-30 08:57 | PTCARENOTE ---
Addendum entered by Tammy Coleman RN 03/30/24 12:37:
all am medications give at this time.
Original Note:
pt on hemodialysis. morning medications to be given after treatment is over. pt denies pain.
--- NOTE | 2024-03-30 11:10 | W.PN.NEPH.HD ---
Assessment
-
pt seen during HD
vitals stable
temp HD catheter seem very positional
likely need to change to tunneled catheter tomorrow
oliguric
out pt HD unit placement
Progress Note - Hemodialysis
-
Date of Service: March 30, 2024
Duration: 30 minutes and 3 hours
Potassium Bath: 3
Calcium Bath: 2.5
Opti-Dialyzer: 160
Ultrafiltration: Other (2kg)
Blood Flow: 350
Dialysate Flow: 600
Heparin: yesx2
EPO: [id number]
[2024-03-30] MEDS: PROTONIX 40 MG PO (12:33)
[2024-03-30] MEDS: TRANDATE 400 MG PO ×2 (12:33→21:15)
[2024-03-30] MEDS: CARDIZEM CD 180 MG PO (12:33)
[2024-03-30] MEDS: DELTASONE 30 MG PO (12:34)
[2024-03-30] MEDS: HEPARIN 2200 UNITS INTRACATH (12:39)
--- NOTE | 2024-03-30 14:18 | W.PN.HOSP.TC ---
Today's Communication/Plan
-
for tunneled HD cath tomorrow
Eliquis on hold--resume after tunneled HD
Assessment / Plan
Assessment / Plan
pt is a 68 year old male
Acute Renal Failure with hyperkalemia progressed to hemodialysis due to worsening ANCA vasculitis---progressive renal failure over past couple of months; CT without [place], volume overloaded --apprec renal/IR--got temp cath to start HD here--treating
hyperkalemia--Eliquis was on hold--cont to hold, will need tunneled HD cath prior to d/c (scheduled for tomorrow per renal), wants [facility] HD chair, apprec CM
ANCA Vasculitis--patient is on Rituximab as outpatient and has been recently started on Tavneos---continue steroid course - Prednisone 30mg PO QD--no need for stress doses--hold prophylactic Bactrim DS
UA consistent with Inflammation/glomerulonephritis--doubt UTI--follow culture--hold ABX
Paroxysmal Atrial Fibrillation--s/p successful ablation in past--restart Eliquis after tunneled cath
GERD-- cont Protonix
Essential HTN--holding lorsartan---restarted diltiazem and labetalol
DVT PPx SCD
code status -- FULL CODE
Anticipated Discharge: > 48 hours
Subjective/Interval History
-
Date of Service: March 30, 2024
pt asking about Eliquis restarting--going to get tunneled HD cath tomorrow
Objective Data
-
Labs:
Laboratory Results
03/30/24
06:35
WBC 12.8 H
Hgb 8.8 L
Hct 26.2 L
Plt Count
Sodium 138
Potassium 4.2
Chloride 103
Carbon Dioxide 28
BUN 82 H
Creatinine 4.2 H*
Glucose 90
Calcium 7.5 L
Vital Signs:
max temp for 24 hours
03/30/24
11:30
Temp 98.0 F
Vital Signs
Temp Pulse Resp BP Pulse Ox
98.0 F 72 20 174/100 98
03/30/24 11:30 03/30/24 11:30 03/30/24 11:30 03/30/24 11:30 03/30/24 11:30
I&O
03/29/24 03/30/24 03/31/24
06:59 06:59 06:59
Intake Total 645 / 645
Output Total 1150 / 1150 750 / 750
Balance -1150 / -1150 -105 / -105
Review of Systems
-
All other systems: Reviewed and negative
Physical Exam
-
General: Well Developed, Well Nourished and No Apparent Distress
HEENT: Normocephalic and Atraumatic
Respiratory: Clear to Auscultation; Negative Wheezes or Rhonchi
Cardiac: Regular Rhythm and S1/S2; Negative Murmur
GI: Soft, Nontender, Nondistended and Normal Bowel Sounds
Musculoskeletal: No Clubbing and No Cyanosis; Negative No Edema
Neuro: Awake and Alert
Psych: Calm
--- NOTE | 2024-03-30 14:55 | CM ---
CM reviewed chart, patient for tunneled HD cath tomorrow. Clinical information previously faxed to [facility] for outpatient HD. CM will continue to follow for all discharge planning needs.
Plan; [facility] outpatient DH when medically stable, schedule request for MWF noon.
[2024-03-30 16:20] LABS: Glomerular Base Membrane Ab 0 AU/mL (0-19)
[2024-03-30] MEDS: PROSCAR 5 MG PO (21:16)
[2024-03-30] MEDS: OSCAL CAL 500 1000 MG PO (21:17)
[2024-03-30] MEDS: TYLENOL 650 MG PO (23:58)
[2024-03-31] VITALS (12 sets, daily range): BP systolic 73–179; BP diastolic 83–112; PULSE 82–88; BMI 34.0
--- NOTE | 2024-03-31 08:14 | W.PN.HOSP.TC ---
Today's Communication/Plan
-
plan for tunneled cath today
resume Eliquis after catheter placement
Assessment / Plan
Assessment / Plan
Patient is a 68-year-old male with past medical history of hypertension, hyperlipidemia, BPH, atrial fibrillation, ANCA vasculitis presenting to the ER with progressive abdominal pain and 25 pound weight gain over the last 2 weeks.
#Acute renal failure and history of ANCA vasculitis
CT shows no hydro or nephrolithiasis
Progressive renal failure over the last few weeks
Anti-GBM negative
Eliquis held for placement of tunneled cath potentially today
Would like to have dialysis chair MWF
Continue to follow BMP
#Hyperkalemia
resolved after initiation of HD
#ANCA vasculitis
Continue prednisone 30 mg
Hold Bactrim
History of rituximab and tavneos use
#Inflammatory urine analysis
Unlikely UTI because of pre-existing glomerular process which increases excretion of protein, blood and cells
Culture negative
#Atrial fibrillation
Continue to hold Eliquis
#GERD
Continue Protonix
#Essential hypertension
Hold losartan, consider restarting versus starting nifedipine. Pending nephrology recommendation
Continue diltiazem and labetalol
DVT prophylaxis SCDs
Full code
Anticipated Discharge: 24 - 48 hours
Subjective/Interval History
-
Date of Service: March 31, 2024
Patient is a 68-year-old male with past medical history of hypertension, hyperlipidemia, BPH, atrial fibrillation, ANCA vasculitis presenting to the ER with progressive abdominal pain and 25 pound weight gain over the last 2 weeks. Patient reports
feeling significantly better than when he came in last week. He feels that he is able to breathe more comfortably and is not in as much discomfort. He reports no nausea, vomiting, chest pain, shortness of breath or any numbness or tingling in
extremities. He states he still has some headaches, which is secondary to uncontrolled blood pressure. He states that [facility] so that he [facility] spend some time with his family.
Objective Data
-
Labs:
Laboratory Results
03/31/24 03/31/24
07:46 07:47
WBC Pending
Hgb Pending
Hct Pending
Plt Count Pending
Sodium Pending
Potassium Pending
Chloride Pending
Carbon Dioxide Pending
BUN Pending
Creatinine Pending
Glucose Pending
Calcium Pending
Total Bilirubin Pending
AST Pending
ALT Pending
Alkaline Phosphatase Pending
Vital Signs:
Vital Signs
Temp Pulse Resp BP Pulse Ox
97.8 F 86 18 171/93 93
03/31/24 03:46 03/31/24 03:46 03/31/24 03:46 03/31/24 03:46 03/31/24 03:46
I&O
03/30/24 03/31/24 04/01/24
06:59 06:59 06:59
Intake Total 645 / 645 720 / 720
Output Total 750 / 750 200 / 200
Balance -105 / -105 520 / 520
Review of Systems
-
History Source: Patient
Constitutional: Reports No Symptoms
EENT: Reports No Symptoms Reported
Respiratory: Reports No Symptoms
Cardiac: Reports No Symptoms
Abdomen/GI: Reports No Symptoms
Musculoskeletal: Reports Edema
Neuro: Reports Headache
Physical Exam
-
General: Well Developed, Well Nourished, No Apparent Distress, Comfortable and Conversant
HEENT: Normocephalic and Atraumatic
Respiratory: Clear to Auscultation
Cardiac: Regular Rhythm and S1/S2
GI: Soft, Nontender and Nondistended
Musculoskeletal: No Clubbing, No Cyanosis, Edema, Right Lower Extrem and Edema, Left Lower Extrem
Skin: Warm and Dry
Neuro: AO x 3
Psych: Calm
[2024-03-31] MEDS: CARDIZEM CD 180 MG PO (08:17)
[2024-03-31] MEDS: TRANDATE 400 MG PO ×2 (08:17→20:45)
[2024-03-31] MEDS: DELTASONE 30 MG PO (08:17)
[2024-03-31] MEDS: VITAMIN C 500 MG PO (08:17)
[2024-03-31] MEDS: VITAMIN D3 (cholecalciferol) 50 MCG PO (08:17)
[2024-03-31] MEDS: TRICOR 145 MG PO (08:17)
[2024-03-31] MEDS: PROTONIX 40 MG PO (08:17)
[2024-03-31 08:26] LABS: Hematocrit 26.2 % (39.0-52.0); Hemoglobin 8.6 g/dL (13.0-18.0); Mean Corp Hgb Conc. 32.8 g/dL (33.0-37.0); Mean Corpuscular Hgb 29.5 pg (27.0-31.0); Mean Corpuscular Volume 89.7 fL (80.0-94.0); Mean Platelet Volume 12.1 fL (7.4-10.4); Platelet Count 128 10^3/uL (130-400); Red Blood Cell Count 2.92 10^6/uL (4.70-6.10); Red Cell Dist. Width 16.2 % (11.5-14.5)
[2024-03-31 08:44] LABS: ALT (SGPT) 38 U/L (0-50); AST (SGOT) 29 U/L (17-59); Albumin 2.3 g/dl (3.5-5.0); Alkaline Phosphatase 27 U/L (38-126); Blood Urea Nitrogen 59 mg/dl (9-20); Calcium 7.6 mg/dl (8.4-10.2); Carbon Dioxide 29 mmol/L (22-30); Chloride 103 mmol/L (98-107); Estimated Creatinine Clearance 20 ml/min; Glucose 82 mg/dl (70-99); Magnesium 1.9 mg/dl (1.6-2.3); Potassium 3.8 mmol/L (3.5-5.1); Sodium 137 mmol/L (135-145); Total Bilirubin 0.4 mg/dl (0.2-1.3); Total Protein 4.4 g/dl (6.3-8.2); eGFR 17.41
[2024-03-31] MEDS: ANCEF 10 IV (10:53)
--- NOTE | 2024-03-31 11:46 | W.PN.NEPH.PH ---
Today's Communication / Plan
-
HD tomorrow
Assessment/Plan
-
Assessment
MOISES
Azotemia
hyperkalemia
aemia
metabolic acidosis
pauci immune focal crescentic glomerulosclerosis
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
edema
Plan
dialysis tomorrow
orders provided
for tunneled HD catheter today
-
-
Date of Service: March 31, 2024
CC / HPI / ROS
-
Chief Complaint:
Acute kidney injury
History of Present Illness:
Acute kidney injury now on dialysis
Hemodynamically stable
Review of Systems:
No chest pain or shortness of breath
Labs
-
Labs:
WBC 15.0 10^3/uL (4.8-10.8) H 03/31/24 07:47
RBC 2.92 10^6/uL (4.70-6.10) L 03/31/24 07:47
Hgb 8.6 g/dL (13.0-18.0) L 03/31/24 07:47
Hct 26.2 % (39.0-52.0) L 03/31/24 07:47
Plt Count 128 10^3/uL (130-400) L D 03/31/24 07:47
Sodium 137 mmol/L (135-145) 03/31/24 07:46
Potassium 3.8 mmol/L (3.5-5.1) 03/31/24 07:46
Chloride 103 mmol/L (98-107) 03/31/24 07:46
Carbon Dioxide 29 mmol/L (22-30) 03/31/24 07:46
BUN 59 mg/dl (9-20) H 03/31/24 07:46
Creatinine 3.6 mg/dL (0.7-1.3) H 03/31/24 07:46
eGFR 17.41 03/31/24 07:46
Glucose 82 mg/dl (70-99) 03/31/24 07:46
Calcium 7.6 mg/dl (8.4-10.2) L 03/31/24 07:46
Phosphorus 5.5 mg/dl (2.5-4.5) H 03/27/24 22:20
Lay-Z-Rmlqwagivlw Pept 2850 pg/ml 03/27/24 22:19
Albumin 2.3 g/dl (3.5-5.0) L 03/31/24 07:46
Physical Exam
-
Vital Signs:
Vital Signs
Temp Pulse Resp BP Pulse Ox
97.6 F 87 20 179/100 100
03/31/24 10:35 03/31/24 10:35 03/31/24 10:35 03/31/24 10:35 03/31/24 10:35
Cardiovascular:: Regular rate and rhythm
Respiratory:: Bilateral: CTA
Lung Excursion:: Normal
Abdomen:: Nontender and Soft
Bowel Sounds:: Normal
Extremity Edema:: None: Bilateral:
Ndiaye Catheter: No
--- NOTE | 2024-03-31 13:50 | CM ---
All clinicals faxed to [facility] and case assigned to Adele Gonzalez [phone], Patient has been accepted at [facility] in [place], [address] from patient's home, patient has been set up for Sunday, , Sat 6:45am, patient will
have HD tomorrow, plan is for patient to complete paperwork on Sun at [facility] with Nisreen [phone], and then be set up for HD 5:40am, patient is aware and agreeable to plan. Patient reports that he will drive himself to and
from HD.
Plan; New HD, home when stable, outpatient HD has been set up at [facility] at [place] in [place] Sun Sat 6:45am.
--- NOTE | 2024-03-31 16:38 | VATNOTE ---
new right IJ tunelled hd catheter dsg. changed per protocol. dsg was 3/4 soaked with blood and area of catheter insertion site had gelatinous blood attached. 2 quik clot applied after dsg changed with biopatch and that became blood soaked.
[2024-03-31] MEDS: TYLENOL 650 MG PO (20:58)
[2024-03-31] MEDS: PROSCAR 5 MG PO (21:00)
[2024-03-31] MEDS: OSCAL CAL 500 1000 MG PO (21:01)
[2024-04-01 03:07] VITALS: BP 173/84
[2024-04-01 04:02] VITALS: PULSE 80
[2024-04-01 06:00] VITALS: BMI 33.8
[2024-04-01] MEDS: TYLENOL 650 MG PO (06:00)
[2024-04-01 07:00] VITALS: BP 172/95
--- NOTE | 2024-04-01 07:27 | W.PN.HOSP.TC ---
Addendum entered and electronically signed by Marah Garcia MD 04/01/24 14:28:
I saw and evaluated the patient independently. I reviewed the resident�s note and agree with findings and plan as documented by Dr. Taylor.
GENERAL: well developed, well nourished, male in no apparent distress
HEENT: NC/AT
HEART: regular rate and rhythm, +S1, +S2
LUNGS : clear to auscultation bilaterally
ABDOM: soft, nontender, nondistended, + bowel sounds
EXT: no cyanosis, clubbing, or edema
NEUROLOGIC: grossly intact
Acute renal failure and history of ANCA vasculitis--CT shows no hydro or nephrolithiasis--started HD--got tunneled HD cath--can restart Eliquis--anti GBM negative
thrombocytopenia--likely secondary to reactive vasculitis
Hyperkalemia--resolved after initiation of HD
ANCA vasculitis--Continue prednisone 30 mg--Hold Bactrim--History of rituximab and tavneos use, resume tavneos at home
Inflammatory urine analysis--Unlikely UTI because of pre-existing glomerular process which increases excretion of protein, blood and cells--Culture negative
paroxysmal Atrial fibrillation--restart eliquis
GERD--Continue Protonix
Essential hypertension--Resume losartan per nephrology--Continue home diltiazem and labetalol.
Full code
ok for d/c
Original Note:
Today's Communication/Plan
-
Patient discharged today after completion of dialysis and after seeing nutrition
Assessment / Plan
Assessment / Plan
Patient is a 68-year-old male with past medical history of hypertension, hyperlipidemia, BPH, atrial fibrillation, ANCA vasculitis presenting to the ER with progressive abdominal pain and 25 pound weight gain over the last 2 weeks.
#Acute renal failure and history of ANCA vasculitis
CT shows no hydro or nephrolithiasis
Progressive renal failure over the last few weeks
Anti-GBM negative
Eliquis held for placement of tunneled cath potentially today
Would like to have dialysis chair MWF
Continue to follow BMP
#thrombocytopenia
likely secondary to reactive vasculitis
trend CBC
#Hyperkalemia
resolved after initiation of HD
#ANCA vasculitis
Continue prednisone 30 mg
Hold Bactrim
History of rituximab and tavneos use, resume tavneos at home
#Inflammatory urine analysis
Unlikely UTI because of pre-existing glomerular process which increases excretion of protein, blood and cells
Culture negative
#Atrial fibrillation
Continue to hold Eliquis
#GERD
Continue Protonix
#Essential hypertension
Resume losartan per nephrology
Continue home diltiazem and labetalol.
Full code
Anticipated Discharge: Within 24 hours
Subjective/Interval History
-
Date of Service: April 01, 2024
Patient is a 68-year-old male with past medical history of hypertension, hyperlipidemia, BPH, atrial fibrillation, ANCA vasculitis presenting to the ER with progressive abdominal pain and 25 pound weight gain over the last 2 weeks. Patient reports
no acute overnight events. He is scheduled for hemodialysis today. Placement confirmed for dialysis as [facility] in [place]. Patient requested nutrition consult.
Objective Data
-
Labs:
Laboratory Results
04/01/24 04/01/24
06:00 07:00
WBC Pending
Hgb Pending
Hct Pending
Plt Count Pending
Sodium Pending Pending
Potassium Pending Pending
Chloride Pending Pending
Carbon Dioxide Pending Pending
BUN Pending Pending
Creatinine Pending Pending
Glucose Pending Pending
Calcium Pending Pending
Vital Signs:
Vital Signs
Temp Pulse Resp BP Pulse Ox
98.4 F 73 18 173/84 98
04/01/24 03:07 04/01/24 03:07 04/01/24 03:07 04/01/24 03:07 04/01/24 03:07
I&O
03/31/24 04/01/24 04/02/24
06:59 06:59 06:59
Intake Total 720 / 720 100 / 100 240 / 240
Output Total 200 / 200 275 / 275
Balance 520 / 520 100 / 100 -35 / -35
Review of Systems
-
History Source: Patient
Constitutional: Reports No Symptoms
Respiratory: Reports No Symptoms
Cardiac: Reports No Symptoms
Abdomen/GI: Reports No Symptoms
Musculoskeletal: Reports Edema
Neuro: Reports Headache
Physical Exam
-
General: Well Developed, Well Nourished, Comfortable, Conversant and Obese
HEENT: Normocephalic and Atraumatic
Respiratory: Clear to Auscultation
Cardiac: Regular Rhythm and S1/S2
GI: Soft, Nontender and Nondistended
Musculoskeletal: No Clubbing, No Cyanosis, Edema, Right Lower Extrem and Edema, Left Lower Extrem
Skin: Warm and Dry
Neuro: AO x 3
Psych: Calm
Data Reviewed
-
Labs: Labs Reviewed by me and Discussed with Physician
Old Records: Reviewed
[2024-04-01] MEDS: TRICOR 145 MG PO (07:42)
[2024-04-01] MEDS: DELTASONE 30 MG PO (07:42)
[2024-04-01] MEDS: TRANDATE 400 MG PO (07:42)
[2024-04-01] MEDS: VITAMIN D3 (cholecalciferol) 50 MCG PO (07:42)
[2024-04-01] MEDS: VITAMIN C 500 MG PO (07:42)
[2024-04-01] MEDS: CARDIZEM CD 180 MG PO (07:42)
[2024-04-01] MEDS: PROTONIX 40 MG PO (07:42)
[2024-04-01 09:10] LABS: % Basophils 0.1 % (0-2); % Eosinophils 0.8 % (0-6); % Immature Granulocytes 1.9 % (0-0.5); % Lymphocytes 6.6 % (20.5-51.1); % Monocytes 10.7 % (1.7-9.3); % Neutrophils 79.9 % (42.2-75.2); Absolute Eosinophils 0.1 10^3/uL (0-0.7); Absolute Immature Granulocytes 0.3 10^3/uL (0-0.05); Absolute Lymphocytes 0.9 10^3/uL (1.2-3.4); Absolute Monocytes 1.4 10^3/uL (0.1-0.6); Absolute Neutrophils 10.5 10^3/uL (1.4-6.5); Hematocrit 24.8 % (39.0-52.0); Hemoglobin 8.4 g/dL (13.0-18.0); Mean Corp Hgb Conc. 33.9 g/dL (33.0-37.0); Mean Corpuscular Hgb 30.3 pg (27.0-31.0); Mean Corpuscular Volume 89.5 fL (80.0-94.0); Mean Platelet Volume 11.1 fL (7.4-10.4); Nucleated Red Blood Cells % 0.3 % (-); Platelet Count 116 10^3/uL (130-400); Red Blood Cell Count 2.77 10^6/uL (4.70-6.10); Red Cell Dist. Width 16.5 % (11.5-14.5); White Blood Cell Count 13.1 10^3/uL (4.8-10.8)
[2024-04-01] MEDS: HEPARIN 500 UNITS IV ×2 (09:10→10:39)
[2024-04-01 09:31] LABS: Blood Urea Nitrogen 79 mg/dl (9-20); Calcium 7.7 mg/dl (8.4-10.2); Carbon Dioxide 27 mmol/L (22-30); Chloride 104 mmol/L (98-107); Estimated Creatinine Clearance 16 ml/min; Glucose 130 mg/dl (70-99); Potassium 3.7 mmol/L (3.5-5.1); Sodium 138 mmol/L (135-145); eGFR 13.68
--- NOTE | 2024-04-01 10:04 | W.PN.NEPH.HD ---
Assessment
-
Patient seen on dialysis
Patient now dialyzing through tunneled catheter
Systolic blood pressure 177 at current UF set
Losartan will be added back in the evening
Patient stable for discharge from hospital and will have Sunday dialysis at [facility]
Progress Note - Hemodialysis
-
Date of Service: April 01, 2024
Duration: 30 minutes and 3 hours
Potassium Bath: 3
Calcium Bath: 2.5
Opti-Dialyzer: 160
Ultrafiltration: Other (2.5kg)
Blood Flow: 400
Dialysate Flow: 600
Heparin: 500 times two
EPO: [id number]
[2024-04-01] MEDS: RETACRIT 10000 UNITS IV (10:39)
[2024-04-01 11:00] VITALS: BP 171/102
--- NOTE | 2024-04-01 11:22 | CM ---
Patient is currently having HD, plan is for patient to return to home after HD today, patient has been set up with [facility] in [place], patient is aware that he needs to meet with Nisreen at [facility] in [place] and complete paperwork
04/02/24, patient has been set up for HD at 5:40am, on 04/03/24, Patient's HD schedule will be Sunday at 6:45 am. Dialysis center will go over treatment sessions and and time changes patient requests, patient states that
he will be providing his own transportation, telephonic case manager was asked to write a letter stating why patient is unable to travel outside of the [place] which was provided to patient and signed by patient's physician.
Plan; Home today with outpatient HD at [facility].
[phone]
[2024-04-01] MEDS: HEPARIN 4300 UNITS INTRACATH (12:36)
--- NOTE | 2024-04-01 13:02 | VATNOTE ---
HD Rn changed pts tunneled cath dressing, bio patch placed.
--- NOTE | 2024-04-01 13:03 | W.DCSUMMARY ---
Addendum entered and electronically signed by Marah Garcia MD 04/01/24 14:30:
Read, reviewed, and agree. See same day progress note for additional details. Time spent coordinating care, DC planning, review of DC plan of care with resident, transition of care, review of records in EMR, med rec, consults, notes, d/w
consultants, nursing, family, and CM = 32 minutes
Original Note:
Discharge Summary
Discharge Data
Date of Admission: 03/27/24
Date of Discharge: 04/01/24
Total time spent discharging patient (in min): 32
-
Pending Results: No
Hospital Course
Presenting symptom: Abdominal pain/bloating and 25 pound weight gain
Hospital diagnosis: Acute renal failure
Hospital course:Patient is a 68-year-old male with past medical history of hypertension, hyperlipidemia, BPH, atrial fibrillation, ANCA vasculitis presenting to the ER with progressive abdominal pain and 25 pound weight gain over the last 2 weeks.
He is a known patient to Dr. Price and nephrology who has been following him since 2019. Patient was diagnosed then with ANCA vasculitis, started on Rituxan with steroids. His creatinine marissa slowly and the use of Tavneos was considered. Given
clear progression of renal disease, he was given pulse dose of steroids last week and started Tavneos 10 days ago. He began to develop severe edema and weight gain subsequently. In the ED patient was noted to have a creatinine of 6.4, potassium of
6.5 and BUN of 161. CT showed no hydronephrosis or nephrolithiasis. Nephrology recommended placement of dialysis catheter. Patient was dialyzed for 3 days with temporary catheter on 03/28-03/30 and permanent tunneled catheter was placed on 03/31.
Patient has been accepted for dialysis at [facility] for Sunday treatment. Over the course of stay, patient lost 10 kg through dialysis and improved renal function, alleviating many of the presenting symptoms. Patient
is stable and will be discharged home today.
#Acute renal failure and history of ANCA vasculitis
Progressive renal failure over the last few weeks. Permanent tunneled catheter placed on 03/31. Patient will start Sunday dialysis at [facility].
#thrombocytopenia
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
#Hyperkalemia
resolved after initiation of HD
#ANCA vasculitis
Continue 30 mg prednisone, rituximab and Tavneos. Continue to follow with nephrology.
#Inflammatory urine analysis
Unlikely UTI because of pre-existing glomerular process which increases excretion of protein, blood and cells. Culture negative. No antibiotics indicated
#Atrial fibrillation
Resume Eliquis.
#GERD
Continue Protonix
#Essential hypertension
Continue home diltiazem, labetalol, and losartan. Verified by nephrology.

Imaging reviewed during hospital admission:
CT AP 03/27:
FINDINGS:
CHEST: Trace left pleural fluid. The lung bases are otherwise clear. Small pericardial fluid.
ABDOMEN:
The unenhanced liver, gallbladder, bile ducts, pancreas, bilateral adrenal glands, and kidneys are unremarkable other than a few small bilateral renal cysts. No hydronephrosis or nephrolithiasis.
The abdominal aorta is normal in caliber and contains mild calcified atherosclerosis.
Colonic diverticulosis, without evidence for acute diverticulitis. Moderate colonic stool burden. No extraluminal free air, fluid collection, or ascites. New metallic linear densities in the stomach, cecum, and transverse colon probably representing
surgical clips. Large amount of ingested material in the stomach. Bilateral flank anasarca.
PELVIS: The urinary bladder is unremarkable. The prostate gland is mildly enlarged and contains multiple clips. Bilateral fat-containing inguinal hernias, moderate left and small right.
SKELETON: Chronic degenerative changes of the spine, and to a lesser degree the bilateral sacroiliac joints, hips, and symphysis pubis.
IMPRESSION:
No CT evidence for an acute inflammatory process in the abdomen or pelvis within the limitations of the lack of intravenous and oral contrast. Chronic findings, as detailed above.
Discharge Plan
-
Patient Disposition: Home (Routine Discharge)
Discharge Diagnosis/Procedures: Acute renal failure
Condition: Fair
Diet: As tolerated and 2 Gram Sodium
Activity: As tolerated
Driving Restrictions: As prior to admission
Bathing Restrictions: None
Referrals:
Christoph Castellon MD [Family Provider] - in one to two weeks
Additional Discharge Medication Instructions: For blood pressure control: Please continue diltiazem, labetalol and
Prescriptions:
Continued
finasteride 5 MG tablet
5 mg PO HS
fenofibrate nanocrystallized 145 MG tablet
145 mg PO DAILY
ascorbic acid (vitamin C) [Vitamin C] 500 MG tablet
500 mg PO DAILY
vitamin E (dl, acetate) 400 UNITS capsule
400 units PO DAILY
acetaminophen [Tylenol Extra Strength] 500 MG tablet
1,000 mg PO Q8HPRN PRN (Reason: mild pain) Qty: 0 0RF
losartan 100 mg Tablet
100 mg PO DAILY
tadalafil [Cialis] 20 mg Tablet
20 mg PO DAILYPRN PRN (Reason: ed)
potassium chloride 10 mEq Tablet Extended Release
10 meq PO DAILY
labetalol 200 mg Tablet
400 mg PO BID
cholecalciferol (vitamin D3) [Vitamin D3] 50 mcg (2,000 unit) Capsule
50 mcg PO DAILY
calcium carbonate 600 mg calcium (1,500 mg) Tablet
1,200 mg PO HS
Centrum Silver Men [id number] mcg Tablet
1 tab PO DAILY
Probiotic 100 billion cell Capsule
1 cap PO HS
sulfamethoxazole-trimethoprim 800-160 mg Tablet
1 tab PO MOWEFR
furosemide 20 mg Tablet
20 mg PO DAILY
diltiazem HCl 180 mg Capsule,Ext.Rel 24h Degradable
180 mg PO DAILY
prednisone 20 mg tablet
30 mg PO DAILY
pantoprazole 40 mg tablet,delayed release (DR/EC)
40 mg PO DAILY
Rituxan 10 mg/mL Concentrate
0 mg IV [id number]
Ozempic 2 mg/dose (8 mg/3 mL) pen injector
2 mg SC TH
Eliquis 5 MG tablet
5 mg PO BID
Held
magnesium 200 mg Tablet
400 mg PO HS
Hold Instructions: FU with PCP for resuming medication
Discharge Orders:
Discharge Patient (As Directed); Ordered 04/01/24
Ordered By: Marilu Taylor
Discharge Date and Time
Print Language: BELARUSIAN
[2024-04-01 15:00] VITALS: BP 181/99
[2024-04-01] MEDS: APRESOLINE 10 MG PO (17:00)
[2024-04-01] MEDS: COZAAR 100 MG PO (17:01)
[2024-04-01 17:43] VITALS: BP 154/86
== END 2024-04-01 18:55 | disposition home or self-care (01) | DRG 674 ==
LOC: 4 WEST ACU 23:59
PROVIDERS: Internal Medicine; Nurse Practitioner; Radiology Diagnostic Radiology; Radiology Vascular & Interventional Radiology; Specialist; ADMITTING PHYSICIAN Student in an Organized Health Care Education/Training Program; ATTENDING PHYSICIAN Internal Medicine; CONSULT PHYSICIAN Specialist; EMERGENCY PHYSICIAN Emergency Medicine; FAMILY PHYSICIAN Family Medicine
PROC: 02H633Z Insertion of Infusion Device into Right Atrium, Percutaneous Approach (ICD-10-PCS; 2024-03-28)
PROC: B5181ZA Fluoroscopy of Superior Vena Cava using Low Osmolar Contrast, Guidance (ICD-10-PCS; 2024-03-28)
PROC: 5A1D70Z Performance of Urinary Filtration, Intermittent, Less than 6 Hours Per Day (ICD-10-PCS; 2024-03-28)
PROC: 5A09357 Assistance with Respiratory Ventilation, Less than 24 Consecutive Hours, Continuous Positive Airway Pressure (ICD-10-PCS; 2024-03-29)
PROC: 0JH63XZ Insertion of Tunneled Vascular Access Device into Chest Subcutaneous Tissue and Fascia, Percutaneous Approach (ICD-10-PCS; 2024-03-31)
PROC: 05HM33Z Insertion of Infusion Device into Right Internal Jugular Vein, Percutaneous Approach (ICD-10-PCS; 2024-03-31)
PROC: B5131ZA Fluoroscopy of Right Jugular Veins using Low Osmolar Contrast, Guidance (ICD-10-PCS; 2024-03-31)
DX: N17.9 Acute kidney failure, unspecified (principal); E87.20 Acidosis, unspecified; M31.0 Hypersensitivity angiitis; I77.82 Antineutrophilic cytoplasmic antibody [ANCA] vasculitis; R60.0 Localized edema; E78.00 Pure hypercholesterolemia, unspecified; N18.9 Chronic kidney disease, unspecified; I12.9 Hypertensive chronic kidney disease with stage 1 through stage 4 chronic kidney disease, or unspecified chronic kidney disease; N40.0 Benign prostatic hyperplasia without lower urinary tract symptoms; E87.5 Hyperkalemia; K21.9 Gastro-esophageal reflux disease without esophagitis; I48.0 Paroxysmal atrial fibrillation; R21 Rash and other nonspecific skin eruption; D69.59 Other secondary thrombocytopenia; G47.30 Sleep apnea, unspecified; N28.1 Cyst of kidney, acquired; K57.30 Diverticulosis of large intestine without perforation or abscess without bleeding; K40.20 Bilateral inguinal hernia, without obstruction or gangrene, not specified as recurrent; Z96.651 Presence of right artificial knee joint; Z90.49 Acquired absence of other specified parts of digestive tract; Z79.85 Long-term (current) use of injectable non-insulin antidiabetic drugs; Z79.01 Long term (current) use of anticoagulants; Z79.52 Long term (current) use of systemic steroids; Z87.442 Personal history of urinary calculi
CPT/HCPCS: 36415; 36556; 36558; 74176; 76937; 77001; 80048; 80053; 81003; 81015; 82565; 82728; 82962; 83516; 83540; 83550; 83735; 83880; 84100; 84132; 84484; 84520; 85014; 85018; 85025; 85027; 86706; 87086; 87340; 93005; 94660; 96374; 96375; 97116; 97161; 97166; 97530; 99152; 99153; 99285; C1752; G0257; P9047; Q5106

== ENCOUNTER → 2024-04-09 13:06 | Outpatient (REF) | payer MEDICARE, BC, SELFPAY ==
[2024-04-09 13:26] LABS: % Basophils 0.4 % (0-2); % Eosinophils 1.6 % (0-6); % Immature Granulocytes 0.2 % (0-0.5); % Lymphocytes 13.3 % (20.5-51.1); % Monocytes 11.3 % (1.7-9.3); % Neutrophils 73.2 % (42.2-75.2); Absolute Eosinophils 0.1 10^3/uL (0-0.7); Absolute Lymphocytes 0.7 10^3/uL (1.2-3.4); Absolute Monocytes 0.6 10^3/uL (0.1-0.6); Absolute Neutrophils 3.6 10^3/uL (1.4-6.5); Hematocrit 27.8 % (39.0-52.0); Hemoglobin 8.9 g/dL (13.0-18.0); Mean Corpuscular Hgb 29.6 pg (27.0-31.0); Mean Corpuscular Volume 92.4 fL (80.0-94.0); Platelet Count 126 10^3/uL (130-400); Red Blood Cell Count 3.01 10^6/uL (4.70-6.10); Red Cell Dist. Width 16.9 % (11.5-14.5)
== END ==
LOC: OIDL 13:06
PROVIDERS: ATTENDING PHYSICIAN Internal Medicine Hematology & Oncology
DX: D63.1 Anemia in chronic kidney disease (principal); N18.4 Chronic kidney disease, stage 4 (severe); E56.9 Vitamin deficiency, unspecified
CPT/HCPCS: 36415; 85025

== ENCOUNTER → 2024-04-28 12:48 | Outpatient (REF) | payer MEDICARE, BC, SELFPAY | LOC: HWRAD 12:48 | PROVIDERS: ATTENDING PHYSICIAN Internal Medicine Rheumatology; FAMILY PHYSICIAN Internal Medicine; REFERRING PHYSICIAN Specialist | DX: M31.31 Wegener's granulomatosis with renal involvement (principal) | CPT/HCPCS: 71046 ==

== ENCOUNTER → 2024-05-06 13:27 | Outpatient (REF) | payer MEDICARE, BC, SELFPAY | LOC: RAD 13:27 | PROVIDERS: ATTENDING PHYSICIAN Surgery Vascular Surgery; FAMILY PHYSICIAN Internal Medicine | DX: Z01.818 Encounter for other preprocedural examination (principal) | CPT/HCPCS: 93985 ==

== ENCOUNTER 2024-05-12 08:09 | Day surgery (SDC) | payer MEDICARE, BC, SELFPAY ==
[2024-05-12] VITALS (12 sets, daily range): BP systolic 125–161; BP diastolic 76–97; BMI 30.5
[2024-05-12] MEDS: PERIDEX 0.12% ORAL RINSE 15 ML PO (08:53)
[2024-05-12] MEDS: BACTROBAN NASAL 1 GRAM NASAL (08:54)
[2024-05-12 09:15] LABS: Hematocrit 32.7 % (39.0-52.0); Hemoglobin 10.9 g/dL (13.0-18.0); Mean Corp Hgb Conc. 33.3 g/dL (33.0-37.0); Mean Corpuscular Hgb 30.8 pg (27.0-31.0); Mean Corpuscular Volume 92.4 fL (80.0-94.0); Mean Platelet Volume 11.8 fL (7.4-10.4); Platelet Count 142 10^3/uL (130-400); Red Blood Cell Count 3.54 10^6/uL (4.70-6.10); Red Cell Dist. Width 17.3 % (11.5-14.5); White Blood Cell Count 7.3 10^3/uL (4.8-10.8)
[2024-05-12 09:28] LABS: Blood Urea Nitrogen 86 mg/dl (9-20); Calcium 8.2 mg/dl (8.4-10.2); Carbon Dioxide 30 mmol/L (22-30); Chloride 102 mmol/L (98-107); Glucose 81 mg/dl (70-99); Potassium 4.3 mmol/L (3.5-5.1); Sodium 137 mmol/L (135-145); eGFR 12.33
[2024-05-12 09:29] LABS: INR 0.91; PT 12.6 Sec (11.4-14.6)
[2024-05-12 09:30] LABS: APTT 23.3 Sec (23.4-35.0)
--- NOTE | 2024-05-12 09:33 | W.SUR.PREOP ---
Pre-Operative Surgical Note
-
I have examined this patient prior to the performance of the scheduled procedure.
The patient's condition is unchanged from the time of the current History and
Physical and the patient is able to undergo the scheduled procedure.
--- NOTE | 2024-05-12 11:40 | W.SUR.POST ---
Surgical Immediate Post Op
Note
Pre Op Diagnosis: End-stage renal disease
Post Op Diagnosis: Same
Procedure Performed: Left upper extremity brachiocephalic AV fistula creation
Primary Surgeon: Maikel
Assist: Malcolm VASQUES
Anesthesia: General
Estimated Blood Loss: 15 cc
Fluids: See anesthesia flowsheet
Drains/Shunts: None
Specimens/Cultures: None
Doppler/Duplex/Angio (Y/N): Y
Complications: None
Operative Findings: Palpable thrill and palpable radial pulse upon completion
--- NOTE | 2024-05-12 11:41 | OR.RPT ---
Operative Report
Operative Report
PROCEDURE DATE: 05/12/2024
Preoperative diagnosis: End-stage renal disease on hemodialysis
Postoperative diagnosis: Same
Procedure: Left upper extremity (proximal) ulnar artery to cephalic vein arteriovenous fistula creation
Surgeon: Maikel
Premium Auditor: Malcolm
Complications: None
Anesthesia: General
Indications for procedure:
End-stage renal disease on hemodialysis. Discussed with patient risk/benefit/alternatives of arteriovenous access creation. Patient understood all wished to proceed.
Description of procedure:
Patient was identified brought to the operating room placed on the table in supine position. After the adequate administration of anesthesia and perioperative antibiotics he was prepped and draped in the standard surgical fashion. A standard
preoperative timeout was undertaken and everybody was in agreement the plan. A transverse incision was made in the proximal volar aspect of the forearm just distal to the antecubital fossa. This was carried through skin subcutaneous tissue. The
antecubital extension of the cephalic vein was identified and carefully dissected away from surrounding structures and great care to avoid any injury to structures. There was a confluence of several veins here including the basilic vein. All
branches were ligated between silk ties and then divided. As such I was able to mobilize a suitable length of cephalic vein. Once I had done this I then deepened my dissection in the medial aspect of the incision site through the fascial layer.
In the slightly more superficial tissues in the subfascial layer, I identified a small artery which appeared to be a high radial bifurcation artery. Slightly deeper I was able to palpate what I initially thought was a brachial artery, but appeared
to likely be the ulnar artery. The deeper 1 was slightly larger and I felt would likely be a better inflow source. Therefore, the proximal ulnar artery was carefully identified and carefully dissected away from surrounding structures take great
care to avoid injury to structures. I passed a vessel loop around it proximally and distally. Next I gave the patient 3000 units of intravenous heparin. I then ligated the cephalic vein distally in my field with a silk tie and a clip. I then
transected it. I distended under heparinized saline. It distended very well. I marked the anterior surface under distention to avoid any kinking or twisting. The vein was suitable size but just to be sure I ran a 3 and 3.5 mm dilator through
which both passed without any difficulty whatsoever. Next I clamped the brachial artery proximally, and distally I tightened my double looped Vesseloop on the artery. I then made an arteriotomy with 11 blade and extended it using a Peter scissor.
I spatulated the cephalic vein and sewed an end to side anastomosis using a running 6-0 Prolene suture (four-quadrant technique). Prior to completing and tying down my suture line I backbled and forebled the [place] artery. Next I released my
bulldog clamp on the vein and then released my clamp and Vesseloop on the artery. There was an excellent thrill in the fistula. There was a palpable radial pulse at the wrist signals at the wrist. At this point I was very satisfied. I irrigated.
I achieved and confirmed full hemostasis. We then closed in layers using 3-0 Vicryl deep dermal layer followed by 4-0 Monocryl subcuticular stitch. Dermabond was applied. The patient tolerated the procedure well.
[2024-05-12] MEDS: TYLENOL 650 MG PO (13:27)
== END 2024-05-12 15:43 | disposition home or self-care (01) ==
LOC: CATH 08:09
PROVIDERS: ATTENDING PHYSICIAN Surgery Vascular Surgery; FAMILY PHYSICIAN Internal Medicine; OTHER PHYSICIAN Internal Medicine
DX: N18.6 End stage renal disease (principal); Z99.2 Dependence on renal dialysis; Z79.01 Long term (current) use of anticoagulants; R73.03 Prediabetes; I12.0 Hypertensive chronic kidney disease with stage 5 chronic kidney disease or end stage renal disease; I48.91 Unspecified atrial fibrillation; Z79.85 Long-term (current) use of injectable non-insulin antidiabetic drugs; Z79.899 Other long term (current) drug therapy
CPT/HCPCS: 36821; 80048; 85027; 85610; 85730; 86850; 86900; 86901

== ENCOUNTER → 2024-05-21 13:59 | Outpatient (REF) | payer MEDICARE, BC, SELFPAY ==
[2024-05-21 14:08] LABS: % Basophils 0.1 % (0-2); % Eosinophils 0.2 % (0-6); % Immature Granulocytes 1.7 % (0-0.5); % Lymphocytes 8.4 % (20.5-51.1); % Monocytes 10.2 % (1.7-9.3); % Neutrophils 79.4 % (42.2-75.2); Absolute Immature Granulocytes 0.2 10^3/uL (0-0.05); Absolute Lymphocytes 0.8 10^3/uL (1.2-3.4); Absolute Monocytes 0.9 10^3/uL (0.1-0.6); Absolute Neutrophils 7.3 10^3/uL (1.4-6.5); Hematocrit 33.8 % (39.0-52.0); Hemoglobin 10.9 g/dL (13.0-18.0); Mean Corp Hgb Conc. 32.2 g/dL (33.0-37.0); Mean Corpuscular Volume 93.1 fL (80.0-94.0); Mean Platelet Volume 10.6 fL (7.4-10.4); Platelet Count 199 10^3/uL (130-400); Red Blood Cell Count 3.63 10^6/uL (4.70-6.10); Red Cell Dist. Width 16.4 % (11.5-14.5); White Blood Cell Count 9.2 10^3/uL (4.8-10.8)
== END ==
LOC: OIDL 13:59
PROVIDERS: ATTENDING PHYSICIAN Internal Medicine Hematology & Oncology; FAMILY PHYSICIAN Internal Medicine
DX: D63.1 Anemia in chronic kidney disease (principal)
CPT/HCPCS: 36415; 85025

== ENCOUNTER → 2024-07-01 14:59 | Outpatient (REF) | payer MEDICARE, BC, SELFPAY | LOC: DHVS 14:59 | PROVIDERS: ATTENDING PHYSICIAN Physician Assistant; FAMILY PHYSICIAN Internal Medicine | DX: I77.0 Arteriovenous fistula, acquired (principal) | CPT/HCPCS: 93990 ==

== ENCOUNTER → 2024-07-04 12:10 | Outpatient (REF) | payer MEDICARE, BC, SELFPAY | LOC: HWRCS 12:10 | PROVIDERS: ATTENDING PHYSICIAN Internal Medicine; FAMILY PHYSICIAN Internal Medicine | DX: I34.0 Nonrheumatic mitral (valve) insufficiency (principal); I10 Essential (primary) hypertension; E66.3 Overweight; I48.0 Paroxysmal atrial fibrillation; Z01.818 Encounter for other preprocedural examination | CPT/HCPCS: 78452; 93017; A9500; J2785 ==

== ENCOUNTER → 2024-08-18 12:38 | Outpatient (REF) | payer MEDICARE, BC, SELFPAY ==
[2024-08-18 13:03] VITALS: BP 149/84; BP_SYST 64
[2024-08-18 13:32] VITALS: BP 135/79; BP 139/74
== END ==
LOC: RADI 12:38
PROVIDERS: ATTENDING PHYSICIAN Specialist; FAMILY PHYSICIAN Internal Medicine
DX: Z49.01 Encounter for fitting and adjustment of extracorporeal dialysis catheter (principal); N18.6 End stage renal disease
CPT/HCPCS: 36589

== ENCOUNTER → 2024-12-09 11:31 | Outpatient (REF) | payer MEDICARE, BC, SELFPAY | LOC: HWRAD 11:31 | PROVIDERS: ATTENDING PHYSICIAN Specialist; FAMILY PHYSICIAN Internal Medicine | DX: R91.8 Other nonspecific abnormal finding of lung field (principal) | CPT/HCPCS: 71046 ==

== ENCOUNTER 2025-02-13 06:18 | Day surgery (SDC) | payer MEDICARE, BC, SELFPAY ==
[2025-02-13 11:07] VITALS: BMI 27.6
[2025-02-13 11:21] VITALS: BP 124/75
[2025-02-13 13:45] VITALS: BP 118/67
== END 2025-02-13 14:17 | disposition home or self-care (01) ==
LOC: SDS 06:18
PROVIDERS: ATTENDING PHYSICIAN Student in an Organized Health Care Education/Training Program
DX: Z12.11 Encounter for screening for malignant neoplasm of colon (principal); K63.5 Polyp of colon; K57.30 Diverticulosis of large intestine without perforation or abscess without bleeding; K63.3 Ulcer of intestine; K64.8 Other hemorrhoids; K64.4 Residual hemorrhoidal skin tags; K22.2 Esophageal obstruction; K44.9 Diaphragmatic hernia without obstruction or gangrene; K31.7 Polyp of stomach and duodenum; K31.89 Other diseases of stomach and duodenum; Z86.0101 Personal history of adenomatous and serrated colon polyps
CPT/HCPCS: 45385; 45380; 43239; 88305; 88342

== ENCOUNTER 2025-03-22 19:56 | Inpatient (IN) | payer MEDICARE, BC, SELFPAY ==
[2025-03-22] VITALS (9 sets, daily range): BP systolic 127–156; BP diastolic 73–87; BMI 26.1
[2025-03-22 14:47] LABS: Hematocrit 34.3 % (39.0-52.0); Hemoglobin 11.2 g/dL (13.0-18.0); Mean Corp Hgb Conc. 32.7 g/dL (33.0-37.0); Mean Corpuscular Volume 94.2 fL (80.0-94.0); Nucleated Red Blood Cells % 0 % (-); Platelet Count 270 10^3/uL (130-400); Red Cell Dist. Width 16.7 % (11.5-14.5)
[2025-03-22 15:03] LABS: COVID-19 Antigen Negative (Negative)
[2025-03-22 15:04] LABS: ALT (SGPT) 23 U/L (0-50); AST (SGOT) 37 U/L (17-59); Albumin 4.2 g/dl (3.5-5.0); Alkaline Phosphatase 42 U/L (38-126); Blood Urea Nitrogen 41 mg/dl (9-20); Calcium 9.5 mg/dl (8.4-10.2); Carbon Dioxide 32 mmol/L (22-30); Chloride 98 mmol/L (98-107); Glucose 82 mg/dl (70-99); Lipase 1218 U/L (23-300); Potassium 3.3 mmol/L (3.5-5.1); Sodium 136 mmol/L (135-145); Total Protein 6.6 g/dl (6.3-8.2); eGFR 10.40
--- NOTE | 2025-03-22 16:49 | ED.GENMED ---
History of Present Illness
<Isabel Whipple, MOLDING LINE OPERATOR - Last Filed: 03/22/25 19:31>
General
Chief Complaint: Abdominal Symptoms
Source: patient
Exam Limitations: none
Time Seen by Provider: 03/22/25 16:07
Nursing documentation reviewed up to this point in time: agreed with
History of Present Illness
History of Present Illness:
69 yo male dialysis pt on Eliquis for afib, here for blood in urine, episode of vomiting and abdominal pain after drinking a dose of Mucinex about 2.5 hours ago at home. States 20 min after taking the Mucinex he got hot, vomited about 6 times and
had pain across his lower abdomen. States pain lasted about 40 minutes. All symptoms have completely resolved. Denies fever, chest pain, shortness of breath. Denies diarrhea or constipation.
Past History
<Isabel Whipple, MOLDING LINE OPERATOR - Last Filed: 03/22/25 19:31>
Past History
ED Past Medical History: Arrthythmia (A-fib on Eliquis), HTN, Hypercholesterolemia, Renal failure (Dialysis Sunday and Sunday) and Other (BPH )
ED Past Surgical History: Appendectomy, Orthopedic (Partial right knee replacement) and Other (Hernia repair)
Social History
Tobacco: Non-smoker
Alcohol: Occasional
Drug: None
Personal:
Living: with family
Employment: Employed
Review of Systems
<Isabel Whipple, MOLDING LINE OPERATOR - Last Filed: 03/22/25 19:31>
Review of Systems
Allergies reviewed?: Yes
All Other Systems: ROS reviewed and negative except as documented in HPI and ROS
Phy Exam
<Isabel Whipple, MOLDING LINE OPERATOR - Last Filed: 03/22/25 19:31>
Physical Exam
Physical Exam:
GENERAL: No acute distress. A&Ox3.
CONSTITUTIONAL: Afebrile.
EYES: clear, conjunctivae normal
ENMT: moist mucus membranes, Pharynx nl
RESPIRATORY: Regular respirations, nonlabored, lungs clear. Occasional cough
CARDIOVASCULAR: Regular rate and rhythm, no murmurs, no rubs.
GI: Soft, nontender, normal BS
MUSCULOSKELETAL: Moves with ease. Well perfused.
SKIN: Warm, dry, pink
PSYCH: Normal mood and affect. Well kept, interactive and appropriate
NEUROLOGIC: Awake, alert and oriented. No focal neurological deficits
Course
<Isabel Whipple, MOLDING LINE OPERATOR - Last Filed: 03/22/25 19:31>
Orders/Labs/Results
Orders:
Orders
03/22/25 14:40
COVID-19 Antigen Urgent
Source: Nasal Swab
Complete Blood Count/With Diff Urgent
Comprehensive Metabolic Panel Urgent
Lipase Urgent
Influenza A+B Rapid Molecular Urgent
ANKIT Source: Nasal Swab
Specimen Description:
03/22/25 Dinner
Clear Liquid
At Your Request: Full Participation
Does patient need a safe tray?: No
03/22/25 16:48
CT Abd/pelvis W Iv Cont Urgent
Comment:
Reason For Exam: abd pain, elevated Lipase
03/22/25 18:43
0.9% Sodium Chloride 500 ml [Nss] 500 ml IV BOLUS
03/22/25 19:44
Admit/Transfer Patient As Directed
Co-Sign Provider:
Level of Care: Inpatient admission
Assign to:: Medical/Surgical
Physician / Group: cassy
Diagnosis: acute pancreatitis
Reason for Hospitalization: acute pancreatitis
Expected length of stay greater than two midnights?: Yes
ELOS- Estimated Length of Stay in days: 2
I certify the patient meets the requirements for IP care: Yes
PRN Pain Medication Management As Directed
May give lesser potent ordered pain med per pt: Yes
preference::
Protocol:: Medication orders for pain may be administered in a
manner that supports deferring to patient preference
when the pt is:
- Requesting an ordered lesser potent pain medication.
Least to most potent pain medications are defined
as: acetaminophen < NSAID < tramadol < opioids
(morphine, oxycodone, hydromorphone).
- Requesting a lesser dose of the same medication IF
ORDERED.
- Requesting a less intrusive route of administration
if both routes are prescribed by the provider (PO <
IV).
03/22/25 19:45
Code Status As Directed
Resuscitation Status: Full Code
03/22/25 20:26
Acetaminophen [Tylenol] 1,000 mg PO DAILYPRN PRN mild pain
Apixaban [Eliquis] 5 mg PO BID
Lactated Ringers [Lr] 1,000 ml IV 100 mls/hr
lvpibdgcj-GC-hcusknah-guaifen 20 ml PO DAILYPRN PRN
03/22/25 20:26
VTE Contraindication Routine
VTE Mechanical Device Contraindication: Medical Contraindication
Pharmocologic Contraindication: Medical Contraindication
Activity As Directed
Activity Level: As Tolerated
Bladder Scan As Directed
Follow Bladder Retention/Intermittent Cath Algorithm?: Yes
PRN if no void in __ hours: 6
Frequency: Per Retention Algorithm
If Bladder Scan Result >: 400
then:: Straight cath
Straight Cath As Directed
Frequency: Per Retention Algorithm
Additional Instructions: straight cath as needed per acute urinary retention algorithm for 24 hrs
Additional Instructions: for bladder scan greater than 400 mL
Vital Signs As Directed
Frequency: Per unit guidelines
03/22/25 22:00
Calcium Acetate [Phoslo] 667 mg PO TID
Diltiazem Extended Release [Cardizem Cd] 180 mg PO HS
avacopan [Tavneos] 30 mg PO TID
03/22/25 22:37
Urinalysis Reflex To Culture Urgent
Date Specimen was Collected: 03/22/25
Time Specimen was Collected: 16:28
Urine Microscopic Reflex Cult Urgent
Urine Culture Urgent
ANKIT Source: U
Specimen Description:
Date Specimen was Collected: 03/22/25
Time Specimen was Collected: 16:28
03/23/25 06:00
Complete Blood Count/With Diff IN AM
Comprehensive Metabolic Panel IN AM
03/23/25 08:00
Ascorbic Acid [Vitamin C] 500 mg PO DAILY
Cholecalciferol (Vitamin D3) [VITAMIN D3 (cholecalciferol)] 50 mcg PO DAILY
Fenofibrate 145 [Tricor] 145 mg PO DAILY
Lactobac/Bifidobac [Visbiome] 1 cap PO DAILY
Multivitamin [Theragran] 1 tablet PO DAILY
Vitamin E 400 units PO DAILY
Abnormal Lab Results
03/22/25
14:40
RBC 3.64 L 10^6/uL
(4.70-6.10)
Hgb 11.2 L g/dL
(13.0-18.0)
Hct 34.3 L %
(39.0-52.0)
MCV 94.2 H fL
(80.0-94.0)
MCHC 32.7 L g/dL
(33.0-37.0)
RDW 16.7 H %
(11.5-14.5)
MPV 10.7 H fL
(7.4-10.4)
Absolute Lymphs (auto) 0.7 L 10^3/uL
(1.2-3.4)
Absolute Monos (auto) 0.7 H 10^3/uL
(0.1-0.6)
Lymphocytes % 11.7 L %
(20.5-51.1)
Monocytes % 12.4 H %
(1.7-9.3)
Potassium 3.3 L mmol/L
(3.5-5.1)
Carbon Dioxide 32 H mmol/L
(22-30)
BUN 41 H mg/dl
(9-20)
Creatinine 5.5 H* mg/dL
(0.7-1.3)
Lipase 1218 H* U/L
(23-300)
03/22/25 14:40
03/22/25 14:40
Vital Signs
Initial and Last Documented VS:
Initial Vital Signs
Temp Pulse Resp BP Pulse Ox
97.7 F 96 16 134/84 100
03/22/25 14:31 03/22/25 14:31 03/22/25 14:31 03/22/25 14:31 03/22/25 14:31
Last Documented Vital Signs
Temp Pulse Resp BP Pulse Ox
97.7 F 88 19 156/87 98
03/22/25 20:36 03/22/25 21:38 03/22/25 20:36 03/22/25 21:38 03/22/25 20:36
<South Restrepo, DO - Last Filed: 03/22/25 23:00>
Orders/Labs/Results
Orders:
Orders
03/22/25 14:40
COVID-19 Antigen Urgent
Source: Nasal Swab
Complete Blood Count/With Diff Urgent
Comprehensive Metabolic Panel Urgent
Lipase Urgent
Influenza A+B Rapid Molecular Urgent
ANKIT Source: Nasal Swab
Specimen Description:
03/22/25 Dinner
Clear Liquid
At Your Request: Full Participation
Does patient need a safe tray?: No
03/22/25 16:48
CT Abd/pelvis W Iv Cont Urgent
Comment:
Reason For Exam: abd pain, elevated Lipase
03/22/25 18:43
0.9% Sodium Chloride 500 ml [Nss] 500 ml IV BOLUS
03/22/25 19:44
Admit/Transfer Patient As Directed
Co-Sign Provider:
Level of Care: Inpatient admission
Assign to:: Medical/Surgical
Physician / Group: cassy
Diagnosis: acute pancreatitis
Reason for Hospitalization: acute pancreatitis
Expected length of stay greater than two midnights?: Yes
ELOS- Estimated Length of Stay in days: 2
I certify the patient meets the requirements for IP care: Yes
PRN Pain Medication Management As Directed
May give lesser potent ordered pain med per pt: Yes
preference::
Protocol:: Medication orders for pain may be administered in a
manner that supports deferring to patient preference
when the pt is:
- Requesting an ordered lesser potent pain medication.
Least to most potent pain medications are defined
as: acetaminophen < NSAID < tramadol < opioids
(morphine, oxycodone, hydromorphone).
- Requesting a lesser dose of the same medication IF
ORDERED.
- Requesting a less intrusive route of administration
if both routes are prescribed by the provider (PO <
IV).
03/22/25 19:45
Code Status As Directed
Resuscitation Status: Full Code
03/22/25 20:26
Acetaminophen [Tylenol] 1,000 mg PO DAILYPRN PRN mild pain
Apixaban [Eliquis] 5 mg PO BID
Lactated Ringers [Lr] 1,000 ml IV 100 mls/hr
wehttzjuv-SN-yocmqrlf-guaifen 20 ml PO DAILYPRN PRN
03/22/25 20:26
VTE Contraindication Routine
VTE Mechanical Device Contraindication: Medical Contraindication
Pharmocologic Contraindication: Medical Contraindication
Activity As Directed
Activity Level: As Tolerated
Bladder Scan As Directed
Follow Bladder Retention/Intermittent Cath Algorithm?: Yes
PRN if no void in __ hours: 6
Frequency: Per Retention Algorithm
If Bladder Scan Result >: 400
then:: Straight cath
Straight Cath As Directed
Frequency: Per Retention Algorithm
Additional Instructions: straight cath as needed per acute urinary retention algorithm for 24 hrs
Additional Instructions: for bladder scan greater than 400 mL
Vital Signs As Directed
Frequency: Per unit guidelines
03/22/25 22:00
Calcium Acetate [Phoslo] 667 mg PO TID
Diltiazem Extended Release [Cardizem Cd] 180 mg PO HS
avacopan [Tavneos] 30 mg PO TID
03/22/25 22:37
Urinalysis Reflex To Culture Urgent
Date Specimen was Collected: 03/22/25
Time Specimen was Collected: 16:28
Urine Microscopic Reflex Cult Urgent
Urine Culture Urgent
ANKIT Source: U
Specimen Description:
Date Specimen was Collected: 03/22/25
Time Specimen was Collected: 16:28
03/23/25 06:00
Complete Blood Count/With Diff IN AM
Comprehensive Metabolic Panel IN AM
03/23/25 08:00
Ascorbic Acid [Vitamin C] 500 mg PO DAILY
Cholecalciferol (Vitamin D3) [VITAMIN D3 (cholecalciferol)] 50 mcg PO DAILY
Fenofibrate 145 [Tricor] 145 mg PO DAILY
Lactobac/Bifidobac [Visbiome] 1 cap PO DAILY
Multivitamin [Theragran] 1 tablet PO DAILY
Vitamin E 400 units PO DAILY
Abnormal Lab Results
03/22/25
14:40
RBC 3.64 L 10^6/uL
(4.70-6.10)
Hgb 11.2 L g/dL
(13.0-18.0)
Hct 34.3 L %
(39.0-52.0)
MCV 94.2 H fL
(80.0-94.0)
MCHC 32.7 L g/dL
(33.0-37.0)
RDW 16.7 H %
(11.5-14.5)
MPV 10.7 H fL
(7.4-10.4)
Absolute Lymphs (auto) 0.7 L 10^3/uL
(1.2-3.4)
Absolute Monos (auto) 0.7 H 10^3/uL
(0.1-0.6)
Lymphocytes % 11.7 L %
(20.5-51.1)
Monocytes % 12.4 H %
(1.7-9.3)
Potassium 3.3 L mmol/L
(3.5-5.1)
Carbon Dioxide 32 H mmol/L
(22-30)
BUN 41 H mg/dl
(9-20)
Creatinine 5.5 H* mg/dL
(0.7-1.3)
Lipase 1218 H* U/L
(23-300)
03/22/25 14:40
03/22/25 14:40
Vital Signs
Initial and Last Documented VS:
Initial Vital Signs
Temp Pulse Resp BP Pulse Ox
97.7 F 96 16 134/84 100
03/22/25 14:31 03/22/25 14:31 03/22/25 14:31 03/22/25 14:31 03/22/25 14:31
Last Documented Vital Signs
Temp Pulse Resp BP Pulse Ox
97.7 F 88 19 156/87 98
03/22/25 20:36 03/22/25 21:38 03/22/25 20:36 03/22/25 21:38 03/22/25 20:36
<Isabel Whipple, MOLDING LINE OPERATOR - Last Filed: 03/22/25 19:31>
MDM/Problems Addressed
Differential Diagnosis Includes:
gall bladder disease, pancreatitis,
MDM/Problems Addressed:
69 yo male dialysis on -, pt on Eliquis for afib, here for blood in urine, episode of vomiting and abdominal pain after drinking a dose of Mucinex about 2.5 hours ago at home. States 20 min after taking the Mucinex he got hot, vomited about 6
times and had pain across his lower abdomen. States pain lasted about 40 minutes. All symptoms have completely resolved. Denies fever, chest pain, shortness of breath. Denies diarrhea or constipation.
Afebrile, NAD
Abdomen benign at this time
CBC with no clinically significant abnormality
CMP with no clinically significant abnormality, consistent with his renal failure.
Lipase 1218. Pt rarely drinks alcohol
6:55 PM:
CT abdomen pelvis with IV only contrast radiology report read: IMPRESSION:
Findings suggesting some minimal peripancreatic inflammatory changes such as acute pancreatitis. No findings to suggest well-formed abnormal focal peripancreatic fluid collection.
Questionable small gallbladder stones.
Findings, as detailed above compatible with dialysis dependent renal failure. Small simple left renal cysts. Additional subcentimeter low-attenuation renal lesions too small to characterize.
Enlarged prostate gland with some with central gland calcifications and additional possible post treatment changes. Is there a history of prostate carcinoma? Moderate to marked diffuse thickening of the wall of the virtually completely empty
urinary bladder most likely on the basis of bladder outlet obstruction. Other etiology such as cystitis cannot be excluded.
Plan: Admit: Acute pancreatitis
Hospitalist notified of admission.
<Isabel Whipple MOLDING LINE OPERATOR - Last Filed: 03/22/25 19:31>
*Pulse Oximetry
SaO2: 97
Oxygen Mode of Delivery: Room air
Patient hypoxic: no
*Critical Care Note
Total Time (30-74mins, 75-104mins- exclusive of procedures): Not Applicable
ED Attending Note
<Isabel Whipple MOLDING LINE OPERATOR - Last Filed: 03/22/25 19:31>
-
Portions of this chart may have been created with voice recognition software.� Occasional wrong word or��sound alike� substitutions may have occurred due to the inherent limitations of voice recognition software.
<South Restrepo DO - Last Filed: 03/22/25 23:00>
ED Attending Note
Patient seen and examined by attending physician: Yes
ED Attending Note:
I have reviewed and agree with history treatment plan by WEN Hall. My exam revealed
Physical Exam
General: no apparent distress, not acutely ill
Neck: supple. no meningeal signs. normal posterior pharynx
Heart: s1/s2 regular rate and rhythm, no murmur. equal radial
pulses.
HEENT: Pupils equal round reactive to light, EOMI
Lungs: no acute respiratory distress. clear bilaterally
Abdomen: normal bowel sounds. not tender. no CVAT
Neuro: alert and oriented. no focal neurological deficits cranial nerves II through XII intact
Skin: no rash
Psychiatric: well kept. interactive and cooperative
Extremities: no edema. no calf tenderness. negative homans. good distal pulses
CT scan showing signs of pancreatitis. Lipase elevated. Admit to hospitalist for further treatment. Will give IV fluids patient will continue dialysis Sunday.
Discharge Plan
Departure
Patient Disposition: Admit
Date of Disposition: 03/22/25
Time of Disposition: 19:05
Admit to: Med/Surg
Presentation/result/management discussed w/ accepting MD/DO: Hospitalist
Condition: Fair
Discharge Problem:
Acute pancreatitis, ESRD needing dialysis
Interventions
Interventions:
*Risk Screen - Suicide Last Done: 03/22/25 14:34
*General Assessment Last Done: 03/22/25 16:25
*Neglect/Abuse Screening Last Done: 03/22/25 14:34
*ED- Fall Risk Assessment Last Done: 03/22/25 16:36
*ED COVID-19 Vaccine History Last Done: 03/22/25 14:34
*ED Influenza Vaccine History Last Done: 03/22/25 14:34
*Nursing Disposition Last Done: 03/22/25 20:11
[facility]-Alsz[facility]-Ukdlecphop Assessment Last Done: 03/22/25 16:25
Discharge Date and Time
Discharge Date/Time: 03/22/25 20:20
[2025-03-22] MEDS: NSS 500 IV (19:12)
--- NOTE | 2025-03-22 19:50 | HPS.HSE ---
Family Physician
-
Family Physician: Mark Landaverde MD
Chief Complaint
-
abdominal pain
History of Present Illness
69-year-old male past medical history of paroxysmal atrial fibrillation, ANCA vasculitis, ESRD on hemodialysis Sunday, , Sunday, hypertension, hyperlipidemia, BPH status post UroLift, nephrolithiasis, GERD, presenting with abdominal pain
and vomiting. He has had productive cough for the past week with some sore throat which is since resolved and took Mucinex a few hours before arrival. He developed severe vomiting 6 times and pain in the center of his lower abdomen. Pain lasted
for 40 minutes. Abdominal pain vomiting has since resolved. He did have some shortness of breath when he had pain but this is resolved.
He denies any diarrhea constipation. He denies any fevers or chills.
He has had blood in the urine for the past week which is pink-colored. He also has burning with urination. He feels like he cannot urinate fully.
He last had dialysis session yesterday
He denies smoking or alcohol use.
Medical History
Past Medical History
Past Medical History: Reports Other ( paroxysmal atrial fibrillation, ANCA vasculitis, ESRD on hemodialysis Sunday, , Sunday, hypertension, hyperlipidemia, BPH status post UroLift, nephrolithiasis, GERD)
Past Surgical History: Reports Other (Appendectomy, Orthopedic (Partial right knee replacement) and Other (Hernia repair))
Social History
Tobacco: Non-smoker
Alcohol: None
Drug: None
Family History
Family History: Not pertinent
Allergies / Home Medications
Allergies reflects when Allergies were last updated in [facility].
Home Medications with original date entered in [facility]
Allergy/Medication List:
Allergies
Allergy/AdvReac Type Severity Reaction Status Date / Time
No Known Allergies Allergy Verified 02/13/25 11:09
Home Medications
fenofibrate nanocrystallized 145 mg tablet 145 mg PO DAILY High cholesterol 01/21/19
ascorbic acid (vitamin C) 500 mg tablet (Vitamin C) 500 mg PO DAILY Supplement 05/13/19
vitamin E (dl, acetate) 180 mg (400 unit) capsule 400 units PO DAILY Supplement 05/28/19
cholecalciferol (vitamin D3) 50 mcg (2,000 unit) capsule (Vitamin D3) 50 mcg PO DAILY Supplement 02/23/23
dowkwcak-bd-pmtbp 300 mcg-K 60 mcg-lycop 600 mcg-lutein 300 mcg tablet (Centrum Silver Men) 1 tab PO DAILY Supplement 02/23/23
diltiazem HCl 180 mg capsule,extended release 24 hr, controlled 180 mg PO HS Heart Disease/Condition 01/22/24
furosemide 80 mg tablet (Lasix) 80 mg PO DAILY 05/06/24
avacopan 10 mg capsule (Tavneos) 30 mg PO TID 05/12/24
calcium acetate 667 mg tablet 667 mg PO TID 02/13/25
tirzepatide (weight loss) 5 mg/0.5 mL subcutaneous solution (Zepbound) 5 mg SC Q10D 02/13/25
Lactobac no.2-Bifidobac no.1-S. thermo 112.5 billion cell capsule (Visbiome) 1 cap PO DAILY 03/22/25
acetaminophen 500 mg tablet (Tylenol Extra Strength) 1,000 mg PO DAILYPRN PRN mild pain 03/22/25
apixaban 5 mg tablet (Eliquis) 5 mg PO BID 03/22/25
fijvxfplwqlrx-UD-mwyrmhuulyadw-guaif 10 mg-20 mg-650 mg/20 mL oral liq 20 ml PO DAILYPRN PRN cough 03/22/25
Review of Systems
-
History Source: Patient
A 12 point ROS was completed and negative except as noted: Yes
Constitutional: Reports No Symptoms
EENT: Reports No Symptoms
Respiratory: Reports No Symptoms
Cardiac: Reports No Symptoms
: Reports See HPI
Musculoskeletal: Reports No Symptoms
Skin: Reports No Symptoms
Neurological: Reports No Symptoms
Endocrine: Reports No Symptoms
Hematologic/Lymphatic: Reports No Symptoms
Psych: Reports No Symptoms
Physical Exam
Vital Signs
Vital Signs
Temp Pulse Resp BP Pulse Ox
98.4 F 98 22 131/86 99
03/22/25 19:14 03/22/25 19:14 03/22/25 19:14 03/22/25 19:00 03/22/25 19:14
Physical Exam
General: Well Developed, Well Nourished and No Apparent Distress
HEENT: NormoCephalic, Moist mucous membranes and Atraumatic
Respiratory: Clear
Cardiac: S1/S2 and Regular Rhythm; No Murmur or Rub
GI: Soft, Non Tender, Non Distended and Normal Bowel Sounds; No Organomegaly
Rectal: Deferred by Provider
Musculoskeletal: No Clubbing, No Cyanosis and No Edema
Skin: No Rash
Neuro: Nonfocal/grossly intact
Laboratory Results
-
03/22/25 14:40
03/22/25 14:40
Laboratory Results
Total Bilirubin 1.0 mg/dl (0.2-1.3) 03/22/25 14:40
AST 37 U/L (17-59) 03/22/25 14:40
ALT 23 U/L (0-50) 03/22/25 14:40
Alkaline Phosphatase 42 U/L (38-126) 03/22/25 14:40
Lipase 1218 U/L (23-300) H* 03/22/25 14:40
Data Reviewed
-
Lab Data: Labs Reviewed by me
Old Records: Reviewed
Impression/Plan
-
IMPRESSION:
PLAN:
# Mild acute pancreatitis likely secondary to Zepbound
-Lipase 1200
- CT abdomen pelvis shows findings suggesting minimal peripancreatic inflammatory changes such as acute pancreatitis, questionable small gallbladder stones, enlarged prostate gland with some central gland calcifications and additional possible
posttreatment changes, possible bladder outlet obstruction versus cystitis
- Clear liquid, advance as Toller
- IV fluids
- Hold Lasix
- Zofran, Dilaudid
# Mild hematuria possibly secondary to UTI versus BPH
- Urinalysis pending
-Continue Eliquis
- Outpatient follow-up with urology
- Bladder scan protocol to check for retention
Paroxysmal atrial fibrillation
- Continue Eliquis
- Continue Cardizem
History of ANCA vasculitis
- Continue Tavneos
ESRD on hemodialysis
- Hold Lasix
- Nephrology consulted for dialysis for Sunday
Essential hypertension
GERD
Obesity
- Stop Zepbound
Full code
DVT prophylaxis�Eliquis
Renal diet
[2025-03-22] MEDS: ELIQUIS 5 MG PO (21:08)
[2025-03-22] MEDS: LR 1000 IV (21:08)
[2025-03-22] MEDS: CARDIZEM CD 180 MG PO (21:38)
[2025-03-22] MEDS: PHOSLO PO (21:39)
[2025-03-22] MEDS: ROBITUSSIN 100 MG PO (21:39)
[2025-03-22 22:44] LABS: Urine Character Cloudy (Clear)
[2025-03-22 22:51] LABS: Urine Squamous Cell 0-2 /LPF (Few); Urine White Cell 70-80 /HPF (0-5)
[2025-03-22] MEDS: TYLENOL 1000 MG PO (23:29)
[2025-03-23 00:15] VITALS: PULSE 88
--- NOTE | 2025-03-23 00:57 | PTCARENOTE ---
Pt arrived to unit via stretcher. Pt walked from stretcher to bed. Pt oriented to room. Pt AAOx3, VSS. Call mcclelland within reach, plan of care ongoing.
[2025-03-23 04:10] VITALS: PULSE 81
[2025-03-23] MEDS: ROBITUSSIN 100 MG PO ×5 (04:49→23:08)
[2025-03-23] MEDS: TYLENOL 1000 MG PO (04:57)
[2025-03-23 06:34] LABS: Hematocrit 31.5 % (39.0-52.0); Hemoglobin 10.2 g/dL (13.0-18.0); Mean Corp Hgb Conc. 32.4 g/dL (33.0-37.0); Mean Corpuscular Volume 95.2 fL (80.0-94.0); Nucleated Red Blood Cells % 0 % (-); Platelet Count 244 10^3/uL (130-400); Red Cell Dist. Width 16.7 % (11.5-14.5)
[2025-03-23 07:25] LABS: ALT (SGPT) 20 U/L (0-50); AST (SGOT) 33 U/L (17-59); Albumin 3.5 g/dl (3.5-5.0); Alkaline Phosphatase 41 U/L (38-126); Blood Urea Nitrogen 44 mg/dl (9-20); Calcium 9.3 mg/dl (8.4-10.2); Carbon Dioxide 29 mmol/L (22-30); Chloride 98 mmol/L (98-107); Estimated Creatinine Clearance 10 ml/min; Glucose 73 mg/dl (70-99); Potassium 3.4 mmol/L (3.5-5.1); Sodium 135 mmol/L (135-145); Total Protein 5.6 g/dl (6.3-8.2); eGFR 9.01
[2025-03-23 07:30] VITALS: BP 141/88
[2025-03-23 08:00] VITALS: BMI 26.1
[2025-03-23] MEDS: TRICOR 145 MG PO (08:23)
[2025-03-23] MEDS: ELIQUIS 5 MG PO ×2 (08:23→20:42)
[2025-03-23] MEDS: PHOSLO 667 MG PO ×3 (08:23→21:06)
[2025-03-23] MEDS: VISBIOME 1 CAP PO (08:23)
[2025-03-23] MEDS: VITAMIN C 500 MG PO (08:23)
[2025-03-23] MEDS: VITAMIN D3 (cholecalciferol) 50 MCG PO (08:23)
[2025-03-23] MEDS: THERAGRAN 1 TABLET PO (08:23)
[2025-03-23] MEDS: VITAMIN E 400 UNITS PO (08:23)
[2025-03-23] MEDS: LR 1000 IV ×2 (08:24→18:52)
--- NOTE | 2025-03-23 10:50 | W.CON.NEPH ---
Consultation
-
Date/Time Consultation Requested: 03/23/2025 7:30 AM
Date/Time Consultation Performed: 03/23/2025 10:45 AM
Requesting Provider: Dr Weiner
Performing Provider: Dr. Woods
Reason for Consultation: ESRD
Medical History
-
Chief Complaint: ESRD TTS
History of Present Illness:
This is a 69-year-old gentleman with a past medical history of ESRD who dialyzes at [facility] every Tuesdays and Saturdays under our care. He previously underwent renal biopsy on January 23, 2019 which showed a focal
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 He underwent Rituxan therapy with steroids. Unfortunately he never had full recovery of his kidney function and is now ESRD. He has a history
of hyperphosphatemia and is maintained on phosphate binder therapy. He is maintained on GIOVANNI therapy in the dialysis unit for his anemia of chronic kidney disease. He is maintained on diltiazem and eliquis for his history of paroxysmal atrial
fibrillation. He presented to the hospital last evening with ongoing abdominal pain and vomiting. He has had cyclical vomiting 6 times yesterday and infra epigastric lower abdominal pain. Pancreatic enzymes were notably elevated with a lipase of
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 We were consulted for end-stage renal disease management.
Past Medical History
Pauci-immune focal crescentic glomerulonephritis, Leukocytoclastic skin vasculitis, hypertension, BPH, nephrolithiasis, hyperlipidemia, sleep apnea, appendectomy, left laser lithotripsy with ureteral stent, right knee replacement, umbilical hernia
repair, PAF on OAT, anemia of chronic kidney disease
Social History
Tobacco: Non-Smoker
Alcohol: None
Family History
Family History: Not Pertinent
Allergies / Home Medications
Allergy/AdvReac Type Severity Reaction Status Date / Time
No Known Allergies Allergy Verified 02/13/25 11:09
�Medication �Instructions �Recorded �Confirmed �Type
fenofibrate nanocrystallized 145 145 mg PO DAILY High cholesterol 01/21/19 03/22/25 History
mg tablet
ascorbic acid (vitamin C) 500 mg 500 mg PO DAILY Supplement 05/13/19 03/22/25 History
tablet (Vitamin C)
vitamin E (dl, acetate) 180 mg 400 units PO DAILY Supplement 05/28/19 03/22/25 History
(400 unit) capsule
cholecalciferol (vitamin D3) 50 50 mcg PO DAILY Supplement 02/23/23 03/22/25 History
mcg (2,000 unit) capsule (Vitamin
D3)
sjsbfbzc-ej-plhfz 300 mcg-K 60 1 tab PO DAILY Supplement 02/23/23 03/22/25 History
mcg-lycop 600 mcg-lutein 300 mcg
tablet (Centrum Silver Men)
diltiazem HCl 180 mg 180 mg PO HS Heart 01/22/24 03/22/25 History
capsule,extended release 24 hr, Disease/Condition
controlled
furosemide 80 mg tablet (Lasix) 80 mg PO DAILY Fluid 05/06/24 03/22/25 History
Retention/Swelling
avacopan 10 mg capsule (Tavneos) 30 mg PO TID Antineutrophil 05/12/24 03/22/25 History
cytoplasmi
calcium acetate 667 mg tablet 667 mg PO TID Supplement 02/13/25 03/22/25 History
tirzepatide (weight loss) 5 mg/0.5 5 mg SC Q10D Diabetes 02/13/25 03/22/25 History
mL subcutaneous solution (Zepbound)
Lactobac no.2-Bifidobac no.1-S. 1 cap PO DAILY Gastrointestinal 03/22/25 03/22/25 History
thermo 112.5 billion cell capsule Issue
(Visbiome)
acetaminophen 500 mg tablet 1,000 mg PO DAILYPRN PRN mild pain 03/22/25 03/22/25 History
(Tylenol Extra Strength)
apixaban 5 mg tablet (Eliquis) 5 mg PO BID Blood Clot 03/22/25 03/22/25 History
Prevention/Tx
gakmxunidfblv-SX-cpurcqfaxshsk-guaif 20 ml PO DAILYPRN PRN cough 03/22/25 03/22/25 History
10 mg-20 mg-650 mg/20 mL oral liq
Review of Systems
-
History Source: Patient
All other systems: Negative unless noted
Respiratory: Cough
Abdomen/GI: Abdominal Pain, Nausea and Vomiting
: Other (Hematuria)
Physical Exam
Vital Signs
Vital Signs
Temp Pulse Resp BP Pulse Ox
97.7 F 90 16 141/88 95
03/23/25 07:30 03/23/25 07:30 03/23/25 07:30 03/23/25 07:30 03/23/25 07:30
Lab Results
03/23/25 05:51
03/23/25 05:51
WBC 6.4 10^3/uL (4.8-10.8) 03/23/25 05:51
RBC 3.31 10^6/uL (4.70-6.10) L 03/23/25 05:51
Hgb 10.2 g/dL (13.0-18.0) L 03/23/25 05:51
Hct 31.5 % (39.0-52.0) L 03/23/25 05:51
Plt Count 244 10^3/uL (130-400) 03/23/25 05:51
Sodium 135 mmol/L (135-145) 03/23/25 05:51
Potassium 3.4 mmol/L (3.5-5.1) L 03/23/25 05:51
Chloride 98 mmol/L (98-107) 03/23/25 05:51
Carbon Dioxide 29 mmol/L (22-30) 03/23/25 05:51
BUN 44 mg/dl (9-20) H 03/23/25 05:51
Creatinine 6.2 mg/dL (0.7-1.3) H* 03/23/25 05:51
eGFR 9.01 03/23/25 05:51
Glucose 73 mg/dl (70-99) 03/23/25 05:51
Calcium 9.3 mg/dl (8.4-10.2) 03/23/25 05:51
Albumin 3.5 g/dl (3.5-5.0) 03/23/25 05:51
Physical Exam
General: AOx3, Nontoxic , NAD
HEENT: PERRL, EOMI, Anicteric, Conjunctivae Clear, Ear/Nose Intact, Hearing Normal, Oropharynx Clear/Moist, Dentition Intact, Facial Symmetry, Neck Supple, Neck: Trachea Midline, No JVD and No Thyromegaly, no Bruits
Respiratory: Clear to auscultation bilaterally with normal lung exersion
Cardiac: S1/S2 and Regular Rate/Rhythm
Breast: Deferred by me
Abdomen: Soft, Nontender, Nondistended, Normal Bowel Sounds and No Hepatosplenomegaly
Rectal: Deferred by Provider
Genito-urinary: No Costovertebral Tenderness
Extremities: No Clubbing, No Cyanosis and No Edema
Skin: No Rash or open lesions
Neuro: Nonfocal/Grossly Intact, CN II-XII (Intact) and Strength (Musculoskeletal exam 5 out of 5 both upper and lower extremities)
Hematologic/Lymphatic: No Cervical Lymphadenopathy, No Submandibular Lymphadenopathy and No Supraclavicular Lymphadenopathy
Psych: Mood/afflect pleasant, Insight/judgement good and Appropriate
Vascular: plus 2 pedal and radial pulses
Vascular Access: AVF (Left upper extremity excellent thrill and bruit)
Data Reviewed
-
CT Scan: Report Reviewed by me ( CT abdomen pelvis shows findings suggesting minimal peripancreatic inflammatory changes such as acute pancreatitis, questionable small gallbladder stones, enlarged prostate gland with some central gland
calcifications and additional possible posttreatment changes, possible bladder outlet obstructio)
Labs: Labs Reviewed by me (BMP CBC)
Old Records: Reviewed (Reviewed previous EMR record for acute renal failure Nephrology consult: when HD intitated (03/27/24))
Assessment/Plan
-
Impression:
ESRD TTS ([facility])
Abdominal pain vomiting/pancreatitis
Anemia of chronic kidney disease
Hyperphosphatemia
History of paroxysmal atrial fibrillation on chronic anticoagulation therapy
Mild hematuria
History of ANCA vasculitis (on Tavenos)
Hypertension
Plan:
- Dialysis scheduled for tomorrow orders provided
- GIOVANNI therapy to be provided for anemia of chronic kidney disease
- Will reinitiate phosphate binder therapy once oral intake is resumed
- Okay to maintain lactated Ringer's at this time at 100 cc/hr, volume status appears stable
- Ceftriaxone dosage interval appropriate for end-stage renal disease
- Hemodynamically stable on diltiazem in setting of history of hypertension and PAF
[2025-03-23] MEDS: FLUSH (NSS) 1 FLUSH IV ×2 (12:08)
[2025-03-23] MEDS: STERILE WATER FOR INJECTION 10 ML IV (12:09)
[2025-03-23] MEDS: ROCEPHIN 1000 MG IV (12:28)
--- NOTE | 2025-03-23 14:29 | W.PN.HOSP.TC ---
Today's Communication/Plan
-
Assessment / Plan
Assessment / Plan
General: No Apparent Distress, Comfortable and Conversant
HEENT: NormoCephalic, Moist mucous membranes, Atraumatic
Respiratory: Clear and Non Labored Respirations
Cardiac: S1/S2 and Regular Rhythm; No Rub or Gallop
GI: Soft, Non Tender, Non Distended and Normal Bowel Sounds
Musculoskeletal: No Edema, left upper extremity AV fistula
Skin: Warm and dry
: NO Ndiaye
Neuro: Awake, Alert, Nonfocal/grossly intact
Psych: Calm and cooperative
Mr. Charles is a 69-year-old male with a medical history of ESRD (HD TTS, ANCA vasculitis), paroxysmal A-fib (on Eliquis), anemia of chronic disease, and hypertension who presented with abdominal pain associated with nausea and vomiting. Diagnosed
with pancreatitis based on pain, CT imaging findings, and elevated lipase. Possibly due to home Zepbound use, also possibly due to fenofibrate use in the setting of ESRD. Started on IV fluids. Presenting symptoms resolved. Also complaining of
dysuria and hematuria.
Acute pancreatitis:
- Continue IV fluids
- Discontinue home fenofibrate (not dialyzable, side effects include pancreatitis) and Zepbound
- Was tolerating clear liquid diet, now advance to low residue
UTI:
- Complained of lower abdominal pain, dysuria, and mild hematuria
- Urinalysis with significant pyuria and bacteria, culture pending
- Started on antibiotics with ceftriaxone
- Has pending outpatient urology follow-up
ANCA vasculitis:
- Continue home Tavneos
Paroxysmal A-fib:
- Currently rate controlled
- Continue home diltiazem 180 mg p.o. at night
- Anticoagulation with Eliquis
ESRD:
- Secondary to ANCA vasculitis, pauci-immune
- HD TTS via left upper extremity AV fistula for the past year
- On renal transplant list
- Nephrology consulted for continued dialysis while inpatient
DVT prophylaxis: Eliquis
CODE STATUS: Full code
Anticipated Discharge: 24 - 48 hours
Subjective/Interval History
-
Date of Service: March 23, 2025
Patient was seen and examined at bedside this morning. Currently no abdominal pain or nausea.
Objective Data
-
Labs:
Laboratory Results
03/23/25
05:51
WBC 6.4
Hgb 10.2 L
Hct 31.5 L
Plt Count 244
Sodium 135
Potassium 3.4 L
Chloride 98
Carbon Dioxide 29
BUN 44 H
Creatinine 6.2 H*
Glucose 73
Calcium 9.3
Total Bilirubin 0.9
AST 33
ALT 20
Alkaline Phosphatase 41
Vital Signs:
Vital Signs
Temp Pulse Resp BP Pulse Ox
97.7 F 90 16 141/88 95
03/23/25 07:30 03/23/25 07:30 03/23/25 07:30 03/23/25 07:30 03/23/25 08:00
I&O
03/22/25 03/23/25 03/24/25
06:59 06:59 06:59
Intake Total 480 / 480
Balance 480 / 480
Review of Systems
-
History Source: Patient
All other systems: Reviewed and negative
Physical Exam
-
General: No Apparent Distress
[2025-03-23] MEDS: NON-FORMULARY ITEM PO ×3 (15:06)
[2025-03-23] MEDS: NON-FORMULARY ITEM 30 MG PO ×2 (15:06→21:06)
[2025-03-23] MEDS: TYLENOL 650 MG PO (15:52)
[2025-03-23 16:20] VITALS: BP 131/74
[2025-03-23] MEDS: CARDIZEM CD 180 MG PO (21:01)
[2025-03-23 23:00] VITALS: BP 137/81
[2025-03-23 23:39] VITALS: PULSE 89
[2025-03-24] MEDS: LR 1000 IV (04:40)
[2025-03-24] MEDS: ROBITUSSIN 100 MG PO ×3 (05:31→16:14)
[2025-03-24 07:41] VITALS: BP 127/70
[2025-03-24] MEDS: THERAGRAN 1 TABLET PO (07:48)
[2025-03-24] MEDS: VITAMIN E 400 UNITS PO (07:48)
[2025-03-24] MEDS: PHOSLO 667 MG PO ×2 (07:48→17:29)
[2025-03-24] MEDS: VITAMIN D3 (cholecalciferol) 50 MCG PO (07:48)
[2025-03-24] MEDS: VISBIOME 1 CAP PO (07:48)
[2025-03-24] MEDS: NON-FORMULARY ITEM 30 MG PO ×2 (07:48→17:27)
[2025-03-24] MEDS: VITAMIN C 500 MG PO (07:49)
[2025-03-24] MEDS: ELIQUIS 5 MG PO (07:49)
[2025-03-24 11:15] VITALS: BMI 27.5
[2025-03-24] MEDS: EMLA CREAM 1 GRAM TOPICAL (11:58)
[2025-03-24 12:59] LABS: Hematocrit 30.4 % (39.0-52.0); Hemoglobin 10.0 g/dL (13.0-18.0)
[2025-03-24 13:13] LABS: Carbon Dioxide 28 mmol/L (22-30); Chloride 100 mmol/L (98-107); Potassium 3.3 mmol/L (3.5-5.1); Sodium 134 mmol/L (135-145)
--- NOTE | 2025-03-24 13:44 | W.DCSUMMARY ---
Discharge Summary
Discharge Data
Date of Admission: 03/22/25
Date of Discharge: 03/24/25
Total time spent discharging patient (in min): 46
-
Pending Results: Yes
Additional Pending Results:
Final urine cultures
Hospital Course
Mr. Charles is a 69-year-old male with a medical history of ESRD (HD TTS, ANCA vasculitis), paroxysmal A-fib (on Eliquis), anemia of chronic disease, and hypertension who presented with abdominal pain associated with nausea and vomiting. Diagnosed
with pancreatitis based on pain, CT imaging findings, and elevated lipase. Possibly due to home Zepbound use, also possibly due to fenofibrate use in the setting of ESRD. He also reports experiencing dysuria and hematuria. He was started on IV
fluids and antibiotics. His presenting symptoms resolved. He has been discharged to home with an additional 3 more days of antibiotics to complete a total 5-day course. He will need to follow-up with a urologist and already has an outpatient
appointment scheduled for April 06, 2025. He should continue to hold Zepbound and fenofibrate and follow-up with his prescribing physician regarding whether or not to restart these medications at all.
General: No Apparent Distress, Comfortable and Conversant
HEENT: NormoCephalic, Moist mucous membranes, Atraumatic
Respiratory: Clear and Non Labored Respirations
Cardiac: S1/S2 and Regular Rhythm; No Rub or Gallop
GI: Soft, Non Tender, Non Distended and Normal Bowel Sounds
Musculoskeletal: No Edema, left upper extremity AV fistula
Skin: Warm and dry
: NO Ndiaye
Neuro: Awake, Alert, Nonfocal/grossly intact
Psych: Calm and cooperative
Discharge Plan
-
Patient Disposition: Home (Routine Discharge)
Discharge Diagnosis/Procedures: Pancreatitis, urinary tract infection
Activity Restrictions/Additional Instructions:
You were admitted for abdominal pain with nausea and vomiting. You were found to have a urinary tract infection and pancreatitis. You were started on IV fluids and antibiotics with improvement in your symptoms. You will be discharged home with a
prescription for 3 more days of antibiotics to complete a total 5-day course. You will need close follow-up with your primary care physician and with your urologist which you have scheduled for April 06, 2025.
Referrals:
Mark Landaverde MD [[facility], Internal Medicine]
Prescriptions:
New
cefuroxime axetil 250 mg tablet
250 mg PO DAILY 3 Days Qty: 3 0RF
Continued
ascorbic acid (vitamin C) [Vitamin C] 500 MG tablet
500 mg PO DAILY
vitamin E (dl, acetate) 400 UNITS capsule
400 units PO DAILY
cholecalciferol (vitamin D3) [Vitamin D3] 50 mcg (2,000 unit) Capsule
50 mcg PO DAILY
Centrum Silver Men [id number] mcg Tablet
1 tab PO DAILY
diltiazem HCl 180 mg Capsule,Ext.Rel 24h Degradable
180 mg PO HS
furosemide [Lasix] 80 mg Tablet
80 mg PO DAILY
Tavneos 10 mg Capsule
30 mg PO TID
Patient Comments:
Patient says that he has been taking 10mg 6x/day
calcium acetate 667 mg Tablet
667 mg PO TID
Visbiome 112.5 billion cell Capsule
1 cap PO DAILY
uyqaeqjld-QX-joboeajq-guaifen 10-20-650 mg/20 mL Liquid
20 ml PO DAILYPRN PRN (Reason: cough)
Eliquis 5 mg tablet
5 mg PO BID
acetaminophen [Tylenol Extra Strength] 500 MG tablet
1,000 mg PO DAILYPRN PRN (Reason: mild pain)
Held
fenofibrate nanocrystallized 145 MG tablet
145 mg PO DAILY
Hold Instructions: You discontinue this medication for now as it may contribute to pancreatitis, follow-up with your prescribing physician
Zepbound 5 mg/0.5 mL Solution
5 mg SC Q10D
Hold Instructions: Hold this medication as it may be contributing to pancreatitis, follow-up with your prescribing physician
Discharge Orders:
Discharge Patient (As Directed); Ordered 03/24/25
Ordered By: Doug Padgett
Discharge Date and Time
Print Language: JAPANESE
--- NOTE | 2025-03-24 13:46 | W.PN.NEPH.HD ---
Assessment
-
Patient seen on dialysis
Systolic blood pressure stable at 131 and current UF
Diet advancing no more abdominal pain or vomiting (with pancreatitis)
Will be discharged home after dialysis
Progress Note - Hemodialysis
-
Date of Service: March 24, 2025
Duration: 30 minutes and 3 hours
Potassium Bath: 4
Calcium Bath: 2.5
Opti-Dialyzer: 160
Ultrafiltration: Other (1.5 kg)
Blood Flow: 400
Dialysate Flow: 600
Heparin: None
EPO: 6000
[2025-03-24] MEDS: RETACRIT 6000 UNITS IV (14:23)
[2025-03-24 15:00] VITALS: BP 127/74
--- NOTE | 2025-03-24 15:53 | CM ---
CM met with patient who resides alone in a 2 story house with 4 TONIE and elevator inside. Pt was last year.
The patient has been independent in ADLs and ambulation, rarely using the quad cane.
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
Plan: Discharge to home; Pt will drive himself home.
Pt will return to Dialysis at [facility] on his regular schedule.
[2025-03-24] MEDS: FLUSH (NSS) IV ×2 (16:06→16:07)
[2025-03-24] MEDS: STERILE WATER FOR INJECTION IV (16:07)
[2025-03-24] MEDS: LR IV (16:07)
[2025-03-24] MEDS: ROCEPHIN IV (16:07)
[2025-03-24] MEDS: ROCEPHIN 1000 MG IV (16:48)
[2025-03-24] MEDS: STERILE WATER FOR INJECTION 10 ML IV (16:48)
== END 2025-03-24 18:32 | disposition home or self-care (01) | DRG 438 ==
LOC: 3 WEST ACU 19:56
PROVIDERS: Emergency Medicine; Registered Nurse; Specialist; ADMITTING PHYSICIAN Hospitalist; ATTENDING PHYSICIAN Internal Medicine; CONSULT PHYSICIAN Internal Medicine; EMERGENCY PHYSICIAN Emergency Medicine; FAMILY PHYSICIAN Internal Medicine
PROC: 5A1D70Z Performance of Urinary Filtration, Intermittent, Less than 6 Hours Per Day (ICD-10-PCS; 2025-03-24)
DX: K85.30 Drug induced acute pancreatitis without necrosis or infection (principal); N18.6 End stage renal disease; I12.0 Hypertensive chronic kidney disease with stage 5 chronic kidney disease or end stage renal disease; N39.0 Urinary tract infection, site not specified; T50.995A Adverse effect of other drugs, medicaments and biological substances, initial encounter; I77.82 Antineutrophilic cytoplasmic antibody [ANCA] vasculitis; I48.0 Paroxysmal atrial fibrillation; N40.0 Benign prostatic hyperplasia without lower urinary tract symptoms; K21.9 Gastro-esophageal reflux disease without esophagitis; D63.1 Anemia in chronic kidney disease; E66.9 Obesity, unspecified; Z11.52 Encounter for screening for COVID-19; Z68.27 Body mass index [BMI] 27.0-27.9, adult; Z79.899 Other long term (current) drug therapy; Z79.01 Long term (current) use of anticoagulants; Z99.2 Dependence on renal dialysis
CPT/HCPCS: 74177; 80051; 80053; 81003; 81015; 83690; 85014; 85018; 85025; 87077; 87086; 87502; 87811; 94660; 96360; 99285; Q5106; Q9967